=== PATIENT | female | born 1955 | race Caucasian/White ===

== ENCOUNTER → 2016-07-20 | Outpatient (CLI) | payer BC ==
[~2016-07-20] MED LIST: AMR2 PO; ATOR-24 PO; BUPR-79 PO; CLIN300C10 PO; DEXL30CA5 PO; FLUT0.15 NAE; LCTX PO; LISI10TA PO; MULTTAB58 PO; NPR250 PO; NSNN50 NAE
[2016-07-20 14:23] LABS: ESTIMATED AVERAGE GLUCOSE 140 mg/dl; HA1C FLAG Normal (Normal)
[2016-07-20 15:20] LABS: ALT/SGPT 32 U/L (12-78); BLOOD UREA NITROGEN 23 mg/dl (7-18); BUN/CREATININE RATIO 23.8 (10-20); CALCIUM 9.3 mg/dl (8.5-10.1); CARBON DIOXIDE 29 mmol/L (21-32); CHLORIDE 105 mmol/L (98-107); CREATININE 0.97 mg/dl (0.60-1.20); GLUCOSE 126 mg/dl (70-99); POTASSIUM 4.3 mmol/L (3.5-5.1); SODIUM 143 mmol/L (136-145)
[2016-07-20 15:23] LABS: CHOLESTEROL 152 mg/dl (0-200); HDL CHOLESTEROL 50 mg/dl; LDL CHOLESTEROL CALCULATED 83 mg/dl; TRIGLYCERIDES 93 mg/dl (0-150); VERY LOW DENSITY LIPOPROT CALC 19 mg/dl
== END | disposition home or self-care (01) ==
LOC: C.LABBC 10:31
PROVIDERS: ATTEND Family Medicine
DX: E78.5 Hyperlipidemia, unspecified (principal); I10 Essential (primary) hypertension; R73.03 Prediabetes

== ENCOUNTER → 2016-08-10 | Outpatient (CLI) | payer BC ==
--- NOTE | 2016-08-10 16:08 | MAMMOGRAPHY REPORT ---
BILATERAL DIGITAL SCREENING MAMMOGRAM WITH CAD: 08/10/2016 CLINICAL HISTORY: Routine screening. Patient has no complaints. TECHNIQUE: Bilateral CC and MLO views were obtained. Current study was also evaluated with a Comput er Aided Detection (CAD) system. COMPARISON: Comparison is made to exams dated: 08/08/2015 mammogram, 07/24/2013 mammogram, 07/25/2014 mammogram, 07/21/2012 mammogram, 07/15/2011 mammogram, and 07/14/2010 mammogram - [facility]. BREAST COMPOSITION: The tissue of both breasts is almost entirely fatty. FINDINGS: There are diffuse bilateral benign-appearing round and rim calcifications. No suspicious mass, architectural distortion or cluster of suspicious microcalcifications is seen. IMPRESSION: ACR BI-RADS CATEGORY 1: NEGATIVE There is no mammographic evidence of malignancy. A 1 year screening mammogram is recommended. The p atient will receive written notification of the results. Approximately 10% of breast cancers are not detected with mammography. A negative mammographic repor t should not delay biopsy if a clinically suggestive mass is present. Funmi Sidhu M.D. ay/:08/10/2016 16:00:29 Fish Bait Picker: Yonatan Solano RT(R)(M), [facility] letter sent: Normal 1/2 BI-RADS Code: ACR BI-RADS Category 1: Negative
== END | disposition home or self-care (01) ==
LOC: C.MAMM 13:18
PROVIDERS: ATTEND Family Medicine
DX: Z12.31 Encounter for screening mammogram for malignant neoplasm of breast (principal)

== ENCOUNTER 2016-10-02 16:21 | Observation (INO) | payer BC, OTHER ==
[~2016-10-02] VITALS: Ht 160 cm; Wt 74.1 kg
[~2016-10-02 16:21] MED LIST changes: -ATOR-24 PO; -BUPR-79 PO; -DEXL30CA5 PO; -FLUT0.15 NAE; -LISI10TA PO; -NPR250 PO
[2016-10-02] MEDS ORDERED: DEXL30CA5 PO (17:02)
[2016-10-02] MEDS ORDERED: BUPR-79 PO (17:02)
[2016-10-02] MEDS ORDERED: FLUT0.15 NAE (17:02)
[2016-10-02] MEDS ORDERED: LISI10TA PO (17:02)
[2016-10-02] MEDS ORDERED: ATOR-24 PO (17:02)
[2016-10-02] MEDS ORDERED: SODIUM CHLORIDE 0.9% 1000ML 1,000 ML IV STA (17:18)
[2016-10-02] MEDS ORDERED: SODIUM CHLORIDE 0.9% 1000ML 1,000 ML IV ONE (17:18)
--- NOTE | 2016-10-02 17:25 | EMERGENCY ROOM VISIT NOTE ---
History Report prepared by Kaylan: Daniel Brown Under the Supervision of: Dr. Jordan Sumner M.D. First contact with patient: 17:09 Chief Complaint: SYNCOPE Stated Complaint: SYNCOPE/WEAKNESS Nursing Triage Summary: Patient arrived via ALS. 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 Patient had syncopal episode. Staff able to assist patient to floor. Per EMS, no head trauma. Patient denies pain at this time. Hx of diabetes. BSG 88 per EMS. 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 Associated symptoms include diaphoresis, fatigue, and generalized weakness. The patient was picking up her cat at the [facility] today when she began to feel dizzy. Per [facility] business development recruiter, the patient stated that she felt "woozy" then leaned against the desk. Staff was able to lower the patient to the floor. She did not hit her head during the fall. The patient's reports that patient being responsive, but lethargic, about 15 minutes after the syncopal episode occurred. Patient states she "does not know what happened." Patient has a history of diabetes. Her blood sugar was recorded as 88, by EMS, on scene. Patient denies headaches, chest pain, shortness of breath, nausea, vomiting, abdominal pain, or any additional associated symptoms. She denies history of syncopal episodes. Patient's adds that the patient twisted her left knee during the fall. Patient notes that she walked 3 miles, without symptoms, this morning. 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 A total of 10 systems reviewed and were otherwise negative. Past Medical & Surgical Medical Problems: (1) Diabetes Old medical records were reviewed. Nurse's notes were reviewed and I agree with. Diabetes. Denies cardiac disease. Family History No significant family history Social History Smoking Status: Never Smoker Smokeless Tobacco Use: No Alcohol Use: none Drug Use: none Marital Status: Housing Status: lives with significant other Current/Historical Medications Scheduled Atorvastatin (Lipitor), 40 MG PO DAILY Bupropion (Wellbutrin Sr), 150 MG PO BID Dexlansoprazole (Dexilant), 30 MG PO QAM Lisinopril (Prinivil), 10 MG PO DAILY Scheduled PRN Fluticasone Propionate (Nasal) (Flonase Allergy Relief), 2 SPRAYS TRIXIE DAILY PRN for Nasal Congestion Allergies Coded Allergies: Shellfish (Verified Allergy, Unknown, `, 08/08/12) Penicillins (Verified Adverse Reaction, Mild, GI DISTRESS, 08/08/12) Physical Exam Vital Signs Date Time Temp Pulse Resp B/P Pulse Ox O2 Delivery O2 Flow Rate FiO2 10/02/16 18:25 66 18 159/88 99 Room Air 10/02/16 17:00 97 Room Air 10/02/16 16:59 61 10/02/16 16:33 36.6 60 18 140/94 97 Room Air Physical Exam General: Mildly ill appearing middle aged female complaining of generalized weakness and feeling tired. Alert and oriented x3. HEENT: Normal cephalic atraumatic. Pupils are equal round and reactive to light. Extraocular movements are intact. Oropharynx is pink with moist mucous membranes. No swelling of the mouth lips or tongue. Neck: Supple with a midline trachea. No meningeal signs or stiffness, no JVD or bruits. No Stridor. Chest: Clear to auscultation bilaterally. No wheezes or rhonchi. No increased work of breathing. Heart: regular rate and rhythm. Abdomen: Soft nontender, nondistended without rebound guarding or rigidity. Extremities: Left knee tenderness. No cyanosis clubbing or edema. No calf tenderness or assymetry Spine/Back. Non tender to palpation. No CVA tenderness Skin: Good turgor without rashes. Neurologic exam: Cranial nerves two through 12 are intact. Motor and sensation are intact and symmetrical throughout. Medical Decision & Procedures ER Provider Diagnostic Interpretation: Prehospital EKG: Normal sinus rhythm, rate of 60, no acute ischemic changes or ectopy noted. Compared to October- rate has decreased. X-ray results as stated below per interpretation by me and the radiologist: CHEST ONE VIEW PORTABLE CLINICAL HISTORY: Atypical chest pain. Trauma. COMPARISON STUDY: No previous studies for comparison. FINDINGS: The cardiac and mediastinal contours are normal. There is no evidence of focal pulmonary consolidation. There is no evidence of failure. No pleural effusions are visualized.[ There is a 14 mm left basilar nodule versus summation. A PA and lateral study is recommended in follow-up. IMPRESSION: 1. No evidence of failure. No evidence of focal pulmonary consolidation 2. No evidence of pneumothorax 3. 14 mm left basilar nodule versus summation. Electronically signed by: Russell Alcaraz M.D. 10/02/2016 6:01 PM Dictated Date/Time: 10/02/2016 6:00 PM LEFT KNEE 1 OR 2 VIEWS ROUTINE CLINICAL HISTORY: Left knee pain status post trauma COMPARISON: None. DISCUSSION: There is a suprapatellar joint effusion. There is slight sclerosis of the medial tibial plateau. While this may be a chronic finding, one cannot exclude a subtle medial tibial plateau fracture. There is no evidence for soft tissue swelling. IMPRESSION: 1. Small joint effusion 2. Subtle sclerosis involving the medial tibial plateau. While this may be a chronic finding, one cannot exclude a subtle medial tibial plateau fracture. Please correlate with the patient's site of pain, and mechanism of injury. Electronically signed by: Russell Alcaraz M.D. 10/02/2016 6:04 PM Dictated Date/Time: 10/02/2016 6:02 PM Laboratory Results 10/02/16 16:25 Red Blood Count 4.87, Mean Corpuscular Volume 90.8, Mean Corpuscular Hemoglobin 29.4, Mean Corpuscular Hemoglobin Concent 32.4, Mean Platelet Volume 11.0, Neutrophils (%) (Auto) 55.4, Lymphocytes (%) (Auto) 35.3, Monocytes (%) (Auto) 6.7, Eosinophils (%) (Auto) 1.8, Basophils (%) (Auto) 0.7, Neutrophils # (Auto) 3.71, Lymphocytes # (Auto) 2.37, Monocytes # (Auto) 0.45, Eosinophils # (Auto) 0.12, Basophils # (Auto) 0.05 10/02/16 16:25 Test 10/02/16 16:25 10/02/16 17:35 10/02/16 18:55 White Blood Count 6.71 K/uL (4.8-10.8) Red Blood Count 4.87 M/uL (4.2-5.4) Hemoglobin 14.3 g/dL (12.0-16.0) Hematocrit 44.2 % (37-47) Mean Corpuscular Volume 90.8 fL (80-100) Mean Corpuscular Hemoglobin 29.4 pg (25-34) Mean Corpuscular Hemoglobin Concent 32.4 g/dl (32-36) Platelet Count 256 K/uL (130-400) Mean Platelet Volume 11.0 fL (7.4-10.4) Neutrophils (%) (Auto) 55.4 % Lymphocytes (%) (Auto) 35.3 % Monocytes (%) (Auto) 6.7 % Eosinophils (%) (Auto) 1.8 % Basophils (%) (Auto) 0.7 % Neutrophils # (Auto) 3.71 K/uL (1.4-6.5) Lymphocytes # (Auto) 2.37 K/uL (1.2-3.4) Monocytes # (Auto) 0.45 K/uL (0.11-0.59) Eosinophils # (Auto) 0.12 K/uL (0-0.5) Basophils # (Auto) 0.05 K/uL (0-0.2) RDW Standard Deviation 42.4 fL (36.4-46.3) RDW Coefficient of Variation 12.8 % (11.5-14.5) Immature Granulocyte % (Auto) 0.1 % Immature Granulocyte # (Auto) 0.01 K/uL (0.00-0.02) Anion Gap 7.0 mmol/L (3-11) Est Creatinine Clear Calc Drug Dose 61.2 ml/min Estimated GFR () 75.4 Estimated GFR (Non- 65.0 BUN/Creatinine Ratio 22.7 (10-20) Calcium Level 9.3 mg/dl (8.5-10.1) Total Bilirubin 0.5 mg/dl (0.2-1) Direct Bilirubin mg/dl (0-0.2) Aspartate Amino Transf (AST/SGOT) 27 U/L (15-37) Alanine Aminotransferase (ALT/SGPT) 29 U/L (12-78) Alkaline Phosphatase 69 U/L (45-117) Total Creatine Kinase 209 U/L (26-192) Creatine Kinase MB 4.3 ng/ml (0.5-3.6) Creatine Kinase MB Ratio 2.1 (0-3.0) Total Protein 6.9 gm/dl (6.4-8.2) Albumin 3.7 gm/dl (3.4-5.0) Lipase 134 U/L (73-393) Thyroid Stimulating Hormone (TSH) 3.960 uIu/ml (0.300-4.500) Chemistry Specimen Hemolysis Hepatitis C Antibody Screen NEG (NEG) Bedside Troponin I 0.010 ng/ml (0-0.045) Urine Color YELLOW Urine Appearance CLEAR (CLEAR) Urine pH 7.0 (4.5-7.5) Urine Specific [place] 1.014 (1.000-1.030) Urine Protein NEG (NEG) Urine Glucose (UA) NEG (NEG) Urine Ketones NEG (NEG) Urine Occult Blood NEG (NEG) Urine Nitrite NEG (NEG) Urine Bilirubin NEG (NEG) Urine Urobilinogen NEG (NEG) Urine Leukocyte Esterase NEG (NEG) Laboratory studies as stated above per my review. Medications Administered Medications (Trade) Dose Ordered Sig/Jonah Route Start Time Stop Time Status Last Admin Dose Admin Sodium Chloride 1,000 ml @ 999 mls/hr Q1H1M STAT IV 10/02/16 17:18 10/02/16 18:18 DC 10/02/16 18:25 999 MLS/HR Sodium Chloride (1/2 Nss 1000ml) 1,000 ml @ 125 mls/hr Q8H IV 10/02/16 19:28 10/03/16 11:27 10/02/16 22:17 125 MLS/HR Acetaminophen (Tylenol Tab) 650 mg Q4H PRN PO 10/02/16 19:30 11/01/16 19:29 10/02/16 22:20 650 MG ECG Indication: weakness Rate (beats per minute): 60 Rhythm: sinus bradycardia Findings: no acute ischemic change, no ectopy Comparison ECG Date: Prehospital ECG Change: no significant change ED Course 0: Past medical records reviewed. The patient was evaluated in room B8, and a complete history and physical examination were performed. 171: Ordered Sodium Chloride 1,000 ml @ 200 mls/hr IV, Sodium Chloride 1,000 ml @ 999 mls/hr IV. 180: Upon reevaluation, the patient is resting comfortably. I discussed the results and treatment plan with the patient. She verbalized agreement of the treatment plan. 184: I reevaluated the patient, she is still feeling tired at this time. I will evaluate the patient further. 1853: I discussed the patient's case with Dr. Lai ([facility]). He will evaluate the patient for further management and care. Medical Decision Differentials include, but are not limited to; syncope, arrhythmia, dehydration , infection, electrolyte or metabolic abnormality, cardiac disease, CVA. This patient comes in as described above. She was placed in room B8. She is here for treatment and evaluation of having a syncopal episode. She is feeling fine and started feeling dizzy and weak diffusely. She felt fine earlier in the day had no recent illness or fevers. No history of GI bleed. EKG was obtained and shows no acute ischemic changes or significant arrhythmia. She was hydrated with IV normal saline .she was put on a patient monitor. EKG, and multiple other blood testing was obtained. She was reassessed frequently. She seems tired but otherwise is asymptomatic. She has no fever or white count to suggest infection. Her EKG and cardiac workup is unremarkable thus far. She has a normal neurologic exam. She's not significantly anemic. She has no significant electrode or metabolic abnormalities. X-ray of her knee does question a possible tibial plateau fracture versus chronic change since she is tender may be acute. I do think she needs to be admitted for observation due to the syncopal episode hydration and further treatment and evaluation. I have consulted Dr. Lai who saw the patient in the ER and will admit her for these measures. Consults Time Called: 1849 Consulting Physician: Dr. Lai ([facility]) Returned Call: 1853 I discussed the patient's case with Dr. Lai ([facility]). He will evaluate the patient for further management and care. Impression Primary Impression: Syncope Additional Impression: Tibial plateau fracture Scribe Attestation The scribe's documentation has been prepared under my direction and personally reviewed by me in its entirety. I confirm that the note above accurately reflects all work, treatment, procedures, and medical decision making performed by me. Departure Information Dispostion Being Evaluated By Hospitalist Referrals Isabel Kate MD (PCP) Patient Instructions My [facility] Problem Qualifiers
[2016-10-02 17:31] LABS: BASO % 0.7 %; BASO ABS # 0.05 K/uL (0-0.2); COMPLETE YES; EOS % 1.8 %; HEMATOCRIT 44.2 % (37-47); IG% 0.1 %; LYMPH % 35.3 %; LYMPH ABS # 2.37 K/uL (1.2-3.4); MEAN CELL VOLUME 90.8 fL (80-100); MEAN CORPUSCULAR HEMOGLOBIN 29.4 pg (25-34); MEAN CORPUSCULAR HGB CONC 32.4 g/dl (32-36); MONO % 6.7 %; NEUT % 55.4 %; PLATELET COUNT 256 K/uL (130-400); RED BLOOD COUNT 4.87 M/uL (4.2-5.4); WHITE BLOOD COUNT 6.71 K/uL (4.8-10.8)
--- NOTE | 2016-10-02 18:03 | DIAGNOSTIC IMAGING REPORT ---
CHEST ONE VIEW PORTABLE CLINICAL HISTORY: Atypical chest pain. Trauma. COMPARISON STUDY: No previous studies for comparison. FINDINGS: The cardiac and mediastinal contours are normal. There is no evidence of focal pulmonary consolidation. There is no evidence of failure. No pleural effusions are visualized.[ There is a 14 mm left basilar nodule versus summation. A PA and lateral study is recommended in follow-up. IMPRESSION: 1. No evidence of failure. No evidence of focal pulmonary consolidation 2. No evidence of pneumothorax 3. 14 mm left basilar nodule versus summation. Electronically signed by: Russell Alcaraz M.D. 10/02/2016 6:01 PM Dictated Date/Time: 10/02/2016 6:00 PM
--- NOTE | 2016-10-02 18:05 | DIAGNOSTIC IMAGING REPORT ---
LEFT KNEE 1 OR 2 VIEWS ROUTINE CLINICAL HISTORY: Left knee pain status post trauma COMPARISON: None. DISCUSSION: There is a suprapatellar joint effusion. There is slight sclerosis of the medial tibial plateau. While this may be a chronic finding, one cannot exclude a subtle medial tibial plateau fracture. There is no evidence for soft tissue swelling. IMPRESSION: 1. Small joint effusion 2. Subtle sclerosis involving the medial tibial plateau. While this may be a chronic finding, one cannot exclude a subtle medial tibial plateau fracture. Please correlate with the patient's site of pain, and mechanism of injury. Electronically signed by: Russell Alcaraz M.D. 10/02/2016 6:04 PM Dictated Date/Time: 10/02/2016 6:02 PM
[2016-10-02 18:41] LABS: ALKALINE PHOSPHATASE 69 U/L (45-117); ALT/SGPT 29 U/L (12-78); AST/SGOT 27 U/L (15-37); BLOOD UREA NITROGEN 21 mg/dl (7-18); BUN/CREATININE RATIO 22.7 (10-20); CALCIUM 9.3 mg/dl (8.5-10.1); CARBON DIOXIDE 28 mmol/L (21-32); CHLORIDE 107 mmol/L (98-107); CKMB/CK RATIO 2.1 (0-3.0); CREATININE 0.94 mg/dl (0.60-1.20); GLUCOSE 113 mg/dl (70-99); POTASSIUM 4.4 mmol/L (3.5-5.1); SODIUM 142 mmol/L (136-145)
[2016-10-02 19:15] LABS: URINE APPEARANCE CLEAR (CLEAR); URINE BILIRUBIN NEG (NEG); URINE COLOR YELLOW; URINE NITRITE NEG (NEG); URINE SPECIFIC GRAVITY 1.014 (1.000-1.030); UROBILINOGEN NEG (NEG)
[2016-10-02 19:16] LABS: MANUAL MICROSCOPIC REQUIRED? NO; REVIEW REQ? NO
[2016-10-02] MEDS ORDERED: POLYETHYLENE (MIRALAX) 17 GM PACK PO PRN (19:30)
[2016-10-02] MEDS ORDERED: ALUMINUM/MAGNESIUM/SIMETH (MAALOX MAX) 30 ML UDC PO PRN (19:30)
[2016-10-02] MEDS ORDERED: ACETAMINOPHEN 325 MG TAB PO PRN (19:30)
[2016-10-02] MEDS ORDERED: MAGNESIUM HYDROXIDE SUSP 30 ML UDC PO PRN (19:30)
[2016-10-02] MEDS ORDERED: ONDANSETRON INJ 2 MG/ML 2 ML VIAL IV PRN (19:30)
[2016-10-02] MEDS ORDERED: FLUTICASONE PROPIONATE NA SPR 16 GM BTL NAE PRN (19:30)
[2016-10-02] MEDS ORDERED: IV FLUIDS COMPLETED PRN (20:00)
--- NOTE | 2016-10-02 20:34 | History and Physical ---
History & Physical Date & Time of Service: October 02, 2016 at 20:33 Chief Complaint: Syncope/Weakness Primary Care Physician: Isabel Kate MD Past Medical/Surgical History Medical Problems: (1) Diabetes Status: Chronic Family History No significant family history Social History Smoking Status: Never Smoker Smokeless Tobacco Use: No Drug Use: none Marital Status: Immunizations History of Influenza Vaccine: N/A History of Tetanus Vaccine?: Yes Tetanus Immunization Date: Nov 15, 1999 History of Pneumococcal: Yes History of Hepatitis B Vaccine: Unknown Multi-Drug Resistant Organisms History of MDRO: No Allergies Coded Allergies: Shellfish (Verified Allergy, Unknown, `, 08/08/12) Penicillins (Verified Adverse Reaction, Mild, GI DISTRESS, 08/08/12) Home Medications Scheduled Atorvastatin (Lipitor), 40 MG PO DAILY Bupropion (Wellbutrin Sr), 150 MG PO BID Dexlansoprazole (Dexilant), 30 MG PO QAM Lisinopril (Prinivil), 10 MG PO DAILY Scheduled PRN Fluticasone Propionate (Nasal) (Flonase Allergy Relief), 2 SPRAYS TRIXIE DAILY PRN for Nasal Congestion Physical Exam Vital Signs Date Time Temp Pulse Resp B/P Pulse Ox O2 Delivery O2 Flow Rate FiO2 10/02/16 18:25 66 18 159/88 99 Room Air 10/02/16 17:00 97 Room Air 10/02/16 16:59 61 10/02/16 16:33 36.6 60 18 140/94 97 Room Air Diagnostics Laboratory Results Results Past 24 Hours Test 10/02/16 16:25 10/02/16 17:35 10/02/16 18:55 Range/Units White Blood Count 6.71 4.8-10.8 K/uL Red Blood Count 4.87 4.2-5.4 M/uL Hemoglobin 14.3 12.0-16.0 g/dL Hematocrit 44.2 37-47 % Mean Corpuscular Volume 90.8 80-100 fL Mean Corpuscular Hemoglobin 29.4 25-34 pg Mean Corpuscular Hemoglobin Concent 32.4 32-36 g/dl Platelet Count 256 130-400 K/uL Mean Platelet Volume 11.0 7.4-10.4 fL Neutrophils (%) (Auto) 55.4 % Lymphocytes (%) (Auto) 35.3 % Monocytes (%) (Auto) 6.7 % Eosinophils (%) (Auto) 1.8 % Basophils (%) (Auto) 0.7 % Neutrophils # (Auto) 3.71 1.4-6.5 K/uL Lymphocytes # (Auto) 2.37 1.2-3.4 K/uL Monocytes # (Auto) 0.45 0.11-0.59 K/uL Eosinophils # (Auto) 0.12 0-0.5 K/uL Basophils # (Auto) 0.05 0-0.2 K/uL RDW Standard Deviation 42.4 36.4-46.3 fL RDW Coefficient of Variation 12.8 11.5-14.5 % Immature Granulocyte % (Auto) 0.1 % Immature Granulocyte # (Auto) 0.01 0.00-0.02 K/uL Sodium Level 142 136-145 mmol/L Potassium Level 4.4 3.5-5.1 mmol/L Chloride Level 107 98-107 mmol/L Carbon Dioxide Level 28 21-32 mmol/L Anion Gap 7.0 3-11 mmol/L Blood Urea Nitrogen 21 7-18 mg/dl Creatinine 0.94 0.60-1.20 mg/dl Est Creatinine Clear Calc Drug Dose 61.2 ml/min Estimated GFR () 75.4 Estimated GFR (Non- 65.0 BUN/Creatinine Ratio 22.7 10-20 Random Glucose 113 70-99 mg/dl Calcium Level 9.3 8.5-10.1 mg/dl Total Bilirubin 0.5 0.2-1 mg/dl Direct Bilirubin 0-0.2 mg/dl Aspartate Amino Transf (AST/SGOT) 27 15-37 U/L Alanine Aminotransferase (ALT/SGPT) 29 12-78 U/L Alkaline Phosphatase 69 45-117 U/L Total Creatine Kinase 209 26-192 U/L Creatine Kinase MB 4.3 0.5-3.6 ng/ml Creatine Kinase MB Ratio 2.1 0-3.0 Total Protein 6.9 6.4-8.2 gm/dl Albumin 3.7 3.4-5.0 gm/dl Lipase 134 73-393 U/L Thyroid Stimulating Hormone (TSH) 3.960 0.300-4.500 uIu/ml Chemistry Specimen Hemolysis Bedside Troponin I 0.010 0-0.045 ng/ml Urine Color YELLOW Urine Appearance CLEAR CLEAR Urine pH 7.0 4.5-7.5 Urine Specific [place] 1.014 1.000-1.030 Urine Protein NEG NEG Urine Glucose (UA) NEG NEG Urine Ketones NEG NEG Urine Occult Blood NEG NEG Urine Nitrite NEG NEG Urine Bilirubin NEG NEG Urine Urobilinogen NEG NEG Urine Leukocyte Esterase NEG NEG Microbiology Results 10/02/16 Urine Culture, Received Pending Impression Assessment and Plan obs #[id number] VTE Prophylaxis VTE Risk Assessment Done? Y/N: Yes Risk Level: Moderate
[2016-10-02 20:59] VITALS: BP 141/90; PULSE 91; TEMP 37.2; O2SAT 97; Ht 160 cm; Wt 74.1 kg
--- NOTE | 2016-10-02 22:10 | HISTORY & PHYSICAL EXAMINATION ---
DATE OF ADMISSION: 10/02/2016 CHIEF COMPLAINT: Syncope. SECONDARY COMPLAINT: Knee pain. HISTORY OF PRESENT ILLNESS: The patient is a very pleasant 61-year-old female, who notes that she has actually been doing really well. Before we really dive into her history of present illness; she notes actually, recently she has probably been as healthy as she has been in a while. She had some fruit this morning, then went for about a 3.25 mile walk around noon, did not have time to really get any lunch, got a latte and a small piece of cheese. Then, she took her cat to the vet around 3:00. When she was picking up her cat, she started to feel lightheaded and faint, like she was going to go out. Before she could really do anything about it, she was starting to lose consciousness. Staff at the veterinary office were able to lower her to the floor. Unfortunately, on her way down, she believes she twisted her left knee and then she was lying down. She notes while she was down she does not believe she completely lost consciousness, but knows that she was out enough that she could not really open her eyes. She could hear, but not really see and then she was brought to the ER in an ambulance. Now she is awake, alert and generally feels okay. She is very fatigued. No chest pain or shortness of breath. She had no chest pain or shortness of breath preceding the episode, during the episode or after the episode. She felt good during her walk. As far as her secondary complaint, she does not really quite remember what happened with her knee as she was going down, given that she was losing consciousness, but she believes she twisted it and now it hurts a lot, it hurts to move. She had tried to get up with assistance to go to the bathroom and any weight bearing is extremely tender. REVIEW OF SYSTEMS: Otherwise negative, except for as above. PAST MEDICAL HISTORY: Includes; GERD, chronic sinusitis, hyperlipidemia, hypertension, lumbar spondylosis and impaired glucose tolerance. MEDICATIONS: Lipitor 40 mg daily, bupropion SR 150 mg b.i.d., Dexilant 30 mg daily, Cymbalta 60 mg daily, Flonase 2 sprays each nostril daily as needed and lisinopril one tab daily. PAST SURGICAL HISTORY: Cholecystectomy and TAHBSO. FAMILY HISTORY: Colon cancer in her grandmother; diabetes in her grandmother and mother; breast cancer in her mother. SOCIAL HISTORY: She is employed. She is . Never a smoker. She exercises 5-6 times a week now, including a 3.25 mile walk today. ALLERGIES: LISTED PENICILLIN AND SHELLFISH. PHYSICAL EXAMINATION: VITAL SIGNS: Temp 36.6, pulse 60, respiratory rate 18, blood pressure 140/94 and 97% on room air. GENERAL: She is awake, alert, oriented x3, pleasant and fatigued-appearing, but otherwise in no acute distress. HEENT: Normocephalic and atraumatic. Mucous membranes are moist. CARDIOVASCULAR: Regular without rubs, murmurs or gallops. LUNGS: Clear to auscultation bilaterally. No rales, rhonchi or wheezes, with good effort. ABDOMEN: Soft, nondistended and nontender. No masses or organomegaly. EXTREMITIES: Without cyanosis, clubbing or edema. No calf tenderness. She does not have a knee effusion that I can truly feel, but she does have rather significant tenderness at her distal lateral femur, not really any on the tibia, but reproducibly tender on the distal lateral femur with palpation or vibration. No bruising, maybe a trace of edema. NEUROLOGIC: Shows cranial nerves II-XII to be grossly intact. Gross motor and sensory are intact. She shows absolutely no focal neurologic deficits. SKIN: Shows no rashes, no pallor or icterus. MENTAL STATE: Shows good recent and remote recall. Normal mood and affect. Good judgment and insight. LABORATORIES AND DIAGNOSTICS: Knee x-ray shows a questionable fracture of the medial tibial plateau; nothing in the area that is tender. Chest x-ray shows a 14 mm left basilar nodule versus summation, recommending a PA and lateral and followup. CBC shows a white count of 6.71, hemoglobin 14.3, platelets 256. CMP with sodium 142, potassium 4.4, chloride 107, CO2 28, BUN 21, creatinine 0.94, calcium 9.3, glucose 113, total bili 0.5 with an AST of 27, ALT 29, alkaline phosphatase 69. CK total of 209, MB of 4.3, troponin of 0. Total protein 6.9, albumin 3.7 and lipase 134. TSH 3.96. Urinalysis specific gravity is 1.014, pH of 7, yellow and clear. EKG was sinus bradycardia. No notable blocks, no ST changes and the QTc was 433. ASSESSMENT AND PLAN: 1. Syncope. Given her clear prodrome feeling it happened, knowing what was going on when she was starting to go out, it certainly fits with a vasovagal type of response; the exact "why now" seems a bit nonspecific, but certainly her relative lack of p.o. intake and still exercising fairly robustly earlier today are likely part of the factors leading to it. Because of her age, hypertension and hyperlipidemia we will keep her in-house to monitor rhythm, follow cardiac enzymes and get an echocardiogram; when those are all negative, she will be safe for discharge to home. 2. Mild dehydration, mostly from poor p.o. intake today with good exercise. We will give her 2 liters of IV fluids and then follow up her status. 3. Knee pain. It is very difficult to get a good knee exam on her because of guarding against pain, so I am unable to check menisci, ligamentous laxity or even really knee range of motion. She is exquisitely tender in the lateral femur without a whole lot superficial to show for it. I discussed with her given the difficulty of getting a good exam, I am unclear as to if it would be better to proceed with a CAT scan to look for a fracture missed on x-ray or get an MRI to look for ligamentous or meniscal damage; after we discussed it, we felt it most prudent to consult orthopedics to evaluate the knee and then guide from there. For now, the ER is placing a splint. 4. Hypertension, continue her lisinopril. 5. Hyperlipidemia, continue her atorvastatin. 6. Impaired glucose tolerance. Her last A1c was 6.5 about 2.5 months ago and it sounds like she is really working on lifestyle changes in a positive way; so I expect this to improve. 7. Deep venous thrombosis prophylaxis, Lovenox. AP
[2016-10-02] MEDS: BuPROPion SR 150 MG TABCR PO SCH (22:16)
[2016-10-02] MEDS: ATORVASTATIN 40 MG TAB PO SCH (22:16)
[2016-10-02] MEDS: SODIUM CHLORIDE 0.45% 1000ML 1,000 ML IV SCH (22:17)
[2016-10-03] VITALS (9 sets, daily range): BP systolic 121–154; BP diastolic 79–85; PULSE 63–84; TEMP 36.6–37.2; O2SAT 93–98
[2016-10-03] MEDS ORDERED: NURSING VERBAL MED ORDER ONE (01:00)
[2016-10-03] MEDS ORDERED: MoRPHine SULFATE 2 MG/ML CARP IV PRN (01:15)
[2016-10-03] MEDS ORDERED: TRAMADOL HCL 50 MG TAB PO PRN (01:15)
[2016-10-03] MEDS: SODIUM CHLORIDE 0.45% 1000ML 1,000 ML IV SCH (03:58)
[2016-10-03 08:02] LABS: PROTHROMBIN TIME (PATIENT) 10.7 SECONDS (9.0-12.0)
[2016-10-03] MEDS: PANTOprazole SOD 40 MG TAB PO SCH (08:09)
[2016-10-03] MEDS: BuPROPion SR 150 MG TABCR PO SCH ×2 (08:10→20:11)
[2016-10-03] MEDS: LISINOPRIL 10 MG TAB PO SCH (08:11)
--- NOTE | 2016-10-03 09:06 | ORTHOPEDIC CONSULTATION ---
DATE OF CONSULTATION: 10/03/2016 DATE OF CONSULTATION: 10/03/2016. CHIEF COMPLAINT: Left knee pain after a fall and syncopal episode. 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 The exact details of the fall are a little bit hard to know as this was a syncopal episode. She does report that she had no preexisting knee problems and actually walked 3 miles or so earlier in the day. She enjoys walking and does this regularly. No history of knee problems in the past. Ever since this fall, she has had pain and discomfort in her knee. He was seen in the Emergency Room and admitted for evaluation of this syncopal episode. X-rays revealed a possible fracture. She describes global pain. A little bit more lateral than medial. No groin pain. No other injuries. PAST MEDICAL HISTORY: Significant for: 1. Gastroesophageal reflux disease. 2. Elevated cholesterol. 3. Chronic sinusitis. 4. Hypertension. 5. Lumbar spondylosis. The remainder of the past medical history is per the admission H\T\P. PHYSICAL EXAMINATION: GENERAL: Reveals a pleasant, middle-aged female. She is lying in bed and looks quite comfortable. Looks healthy. EXTREMITIES: Examination of the left leg reveals it to be well aligned. There is no visible deformity. She does have a small knee effusion. She can do a straight leg raise but requires quite a bit of effort. There is no varus or valgus instability. She has got tenderness both medially and laterally. Her extensor mechanism is intact. She has got no AP instability. No varus valgus instability. Range of motion of her knee is 0-90 degrees limited by pain. X-RAYS: X-rays of the left knee were reviewed. It shows a small joint effusion. It does look like there is a small crack in the medial tibial plateau. Joint space is otherwise well maintained. This is a nonweightbearing film. ASSESSMENT: A 61-year-old female avid walker, status post a syncopal episode and fall with a question of a medial tibial plateau fracture. It is a little difficult to assess on exam as she is sore all over. X-rays are not certain and I think we need to better image this in order to give her a definitive diagnosis so we can determine her weightbearing status. PLAN: Will keep her nonweightbearing for now. She should continue her medical workup. We are going to get a CT scan with 3 reconstruction which should be able to tell us whether there is a fracture or not. There is no major soft tissue problem. Ligaments were all stable. PT and weightbearing recommendations will all be based on this CT scan results of that. Any other questions can be directed to me at [phone]. If the CT scan is negative, we can start therapy and weightbear as tolerated. If not, we will likely need to put her in a knee immobilizer and keep her nonweightbearing for the next month.
[2016-10-03 09:32] LABS: HEMATOCRIT 38.3 % (37-47); MEAN CELL VOLUME 90.8 fL (80-100); MEAN CORPUSCULAR HEMOGLOBIN 30.3 pg (25-34); MEAN CORPUSCULAR HGB CONC 33.4 g/dl (32-36); MEAN PLATELET VOLUME 10.8 fL (7.4-10.4); PLATELET COUNT 219 K/uL (130-400); RED BLOOD COUNT 4.22 M/uL (4.2-5.4); WHITE BLOOD COUNT 5.87 K/uL (4.8-10.8)
--- NOTE | 2016-10-03 09:33 | DIAGNOSTIC IMAGING REPORT ---
CT OF THE LEFT KNEE PAIN CT DOSE: 221.88 mGy.cm HISTORY: Trauma. Pain. Knee pain after fall. Possible tibial plateau fracture. SD Rec TECHNIQUE: Multiaxial CT images of the left knee were performed and reformatted in the sagittal and coronal plane without the use of contrast. COMPARISON: None. FINDINGS: Moderate degenerative change all major joint compartments. Very small joint effusion. No evidence for a lipohemarthrosis. No evidence for compression deformity. Cortical margins appear to be intact. IMPRESSION: Degenerative change. No evidence for fracture. Small joint effusion. Electronically signed by: Jackson Patricia M.D. 10/03/2016 9:31 AM Dictated Date/Time: 10/03/2016 9:26 AM
[2016-10-03] MEDS: ENOXAPARIN 40 MG/0.4 ML SYR SC SCH (10:31)
[2016-10-03 11:17] LABS: BUN/CREATININE RATIO 18.7 (10-20); CALCIUM 8.9 mg/dl (8.5-10.1); CREATININE 0.9 mg/dl (0.60-1.20)
--- NOTE | 2016-10-03 11:52 | Hospitalist Progress Note ---
Hospitalist Progress Note Date of Service October 03, 2016. (Maria Esther Arzola ., CLAYTONC) Subjective Pt evaluation today including: conversation w/ patient, physical exam, chart review, lab review, review of studies, review of inpatient medication list Pain: 2/10 aching left knee pain at rest PO Intake: Tolerating PO diet Voiding: no voiding problems Patient complains of a 2/10 aching pain in her left knee when at rest. She states that with any movement of her knee or weightbearing, the pain becomes very sharp and severe. She also notes some numbness in her left toes which is new. She is otherwise feeling well, although she still complains of some fatigue. The patient denies fevers, chills, sweats, chest pain, palpitations, claudication, cough, wheezing, shortness of breath, nausea, vomiting, abdominal pain, dysuria, hematuria, urinary retention, paralysis, weakness. Additional Comments: See HPI for pertinent positives and negatives. All other systems reviewed and negative. (Maria Esther Arzola ., SHIVANI-C) Objective Vital Signs Date Time Temp Pulse Resp B/P Pulse Ox O2 Delivery O2 Flow Rate FiO2 10/03/16 11:04 36.6 63 20 141/85 97 Room Air 10/03/16 08:20 36.9 72 18 126/82 94 Room Air 10/03/16 08:00 Room Air 10/03/16 05:00 36.6 67 18 129/85 93 Room Air 10/03/16 04:00 Room Air 10/03/16 00:06 37.0 66 18 121/79 94 Room Air 10/03/16 00:01 94 Room Air 10/02/16 20:59 37.2 91 16 141/90 97 Room Air 10/02/16 20:30 74 18 144/82 96 10/02/16 18:25 66 18 159/88 99 Room Air 10/02/16 17:00 97 Room Air 10/02/16 16:59 61 10/02/16 16:33 36.6 60 18 140/94 97 Room Air (Maria Esther Arzola PA-C) Physical Exam Notes: General appearance: Well-developed, well-nourished, no apparent distress Head: Normocephalic, atraumatic Eyes: Normal inspection, PERRL, EOMI ENT: Normal ENT inspection, hearing grossly normal, pharynx normal Neck: Supple, no JVD, trachea midline Respiratory/Chest: Lungs clear to auscultation, normal breath sounds, no respiratory distress Cardiovascular: Regular rate & rhythm, no gallop, no murmur Abdomen/GI: Normal bowel sounds, non-tender, soft Extremities/Musculoskeletal: + Left knee very TTP on both medial and lateral aspects, worse laterally. Tenderness with any range of motion. Pulses intact. Normal inspection, no calf tenderness, no pedal edema Neurological/Psych: +No sensory deficits. Difficult to examine for motor deficits secondary to tenderness. Alert, normal mood/affect, oriented x 3 Skin: Normal color, warm/dry, no rash (Maria Esther Arzola, HYACINTH) Laboratory Results Last 24 Hours Test 10/02/16 16:25 10/02/16 17:35 10/02/16 18:55 10/02/16 21:01 White Blood Count 6.71 K/uL Red Blood Count 4.87 M/uL Hemoglobin 14.3 g/dL Hematocrit 44.2 % Mean Corpuscular Volume 90.8 fL Mean Corpuscular Hemoglobin 29.4 pg Mean Corpuscular Hemoglobin Concent 32.4 g/dl Platelet Count 256 K/uL Mean Platelet Volume 11.0 fL Neutrophils (%) (Auto) 55.4 % Lymphocytes (%) (Auto) 35.3 % Monocytes (%) (Auto) 6.7 % Eosinophils (%) (Auto) 1.8 % Basophils (%) (Auto) 0.7 % Neutrophils # (Auto) 3.71 K/uL Lymphocytes # (Auto) 2.37 K/uL Monocytes # (Auto) 0.45 K/uL Eosinophils # (Auto) 0.12 K/uL Basophils # (Auto) 0.05 K/uL RDW Standard Deviation 42.4 fL RDW Coefficient of Variation 12.8 % Immature Granulocyte % (Auto) 0.1 % Immature Granulocyte # (Auto) 0.01 K/uL Sodium Level 142 mmol/L Potassium Level 4.4 mmol/L Chloride Level 107 mmol/L Carbon Dioxide Level 28 mmol/L Anion Gap 7.0 mmol/L Blood Urea Nitrogen 21 mg/dl Creatinine 0.94 mg/dl Est Creatinine Clear Calc Drug Dose 61.2 ml/min Estimated GFR () 75.4 Estimated GFR (Non- 65.0 BUN/Creatinine Ratio 22.7 Random Glucose 113 mg/dl Calcium Level 9.3 mg/dl Total Bilirubin 0.5 mg/dl Direct Bilirubin mg/dl Aspartate Amino Transf (AST/SGOT) 27 U/L Alanine Aminotransferase (ALT/SGPT) 29 U/L Alkaline Phosphatase 69 U/L Total Creatine Kinase 209 U/L Creatine Kinase MB 4.3 ng/ml Creatine Kinase MB Ratio 2.1 Total Protein 6.9 gm/dl Albumin 3.7 gm/dl Lipase 134 U/L Thyroid Stimulating Hormone (TSH) 3.960 uIu/ml Chemistry Specimen Hemolysis Hepatitis C Antibody Screen NEG Bedside Troponin I 0.010 ng/ml Urine Color YELLOW Urine Appearance CLEAR Urine pH 7.0 Urine Specific [place] 1.014 Urine Protein NEG Urine Glucose (UA) NEG Urine Ketones NEG Urine Occult Blood NEG Urine Nitrite NEG Urine Bilirubin NEG Urine Urobilinogen NEG Urine Leukocyte Esterase NEG Bedside Glucose 126 mg/dl Test 10/03/16 01:30 10/03/16 06:56 10/03/16 07:31 10/03/16 10:17 Troponin I 0.029 ng/ml 0.031 ng/ml Bedside Glucose 89 mg/dl White Blood Count 5.87 K/uL Red Blood Count 4.22 M/uL Hemoglobin 12.8 g/dL Hematocrit 38.3 % Mean Corpuscular Volume 90.8 fL Mean Corpuscular Hemoglobin 30.3 pg Mean Corpuscular Hemoglobin Concent 33.4 g/dl RDW Standard Deviation 43.5 fL RDW Coefficient of Variation 13.1 % Platelet Count 219 K/uL Mean Platelet Volume 10.8 fL Prothrombin Time 10.7 SECONDS Prothromb Time International Ratio 1.0 Sodium Level 146 mmol/L Potassium Level 4.0 mmol/L Chloride Level 113 mmol/L Carbon Dioxide Level 28 mmol/L Anion Gap 5.0 mmol/L Blood Urea Nitrogen 17 mg/dl Creatinine 0.90 mg/dl Est Creatinine Clear Calc Drug Dose 62.5 ml/min Estimated GFR () 79.4 Estimated GFR (Non- 68.5 BUN/Creatinine Ratio 18.7 Random Glucose 102 mg/dl Calcium Level 8.9 mg/dl (Maria Esther Arzola, SHIVANI-Kaylen) Diagnostic Results Reviewed the following studies and agree with interpretation as follows: Patient Name: RICK ROSENTHAL Unit Number: [id number] Dictated: 10/03/16925 Transcribed: 10/03/16925 MS Printed Date/Time: [~ rep prt dt]/[~ rep prt tm] [~ rep ct labl] - [~ rep ct ivnm] [facility] [place] [address] Dictated: 10/03/16925 Transcribed: 10/03/16925 MS Printed Date/Time: [~ rep prt dt]/[~ rep prt tm] [~ rep ct labl] - [~ rep ct ivnm] Patient: RICK ROSENTHAL Address1: [address] [place] [address] Rec: [id number] Address2: Acct ID: [id number] [facility] Zip: [place] [address] Date: 1955 Sex: F Room/Bed: [facility] Ref Phy: Isabel Kate MD SC: C.2T Att Phy: Roger Erazo D.O. Report #: [id number] Elaine Phy: Isabel Kate MD Test: LEWO Admit Phy: Ameya Lai D.O. Linux Architect: NICOLE Interpreting Phy: Jackson Patricia M.D. Diagnosis: SYNCOPE Ordering Phy: Beau King M.D. Service Date: 10/03/16 Admit Date: 10/02/1704/05/17 MNE: [id number] CONF: DICTATED BY: Jackson Patricia M.D.]] CC: Roger Erazo D.O. Martin, James S., M.D. Zuniga, Tania S., MD Endcc: [~ rep ct add3]] CT OF THE LEFT KNEE PAIN CT DOSE: 221.88 mGy.cm HISTORY: Trauma. Pain. Knee pain after fall. Possible tibial plateau fracture. SD Rec TECHNIQUE: Multiaxial CT images of the left knee were performed and reformatted in the sagittal and coronal plane without the use of contrast. COMPARISON: None. FINDINGS: Moderate degenerative change all major joint compartments. Very small joint effusion. No evidence for a lipohemarthrosis. No evidence for compression deformity. Cortical margins appear to be intact. IMPRESSION: Degenerative change. No evidence for fracture. Small joint effusion. Electronically signed by: Jackson Patricia M.D. 10/03/2016 9:31 AM Dictated Date/Time: 10/03/2016 9:26 AM The status of this report is Signed. Draft = Not yet reviewed or approved by Radiologist. Signed = Reviewed and approved by Radiologist. <AttendingPhy>Roger Erazo D.O.</AttendingPhy> <FamilyPhy>Isabel Kate MD</FamilyPhy> <PrimaryPhy>Isabel Kate MD</PrimaryPhy> <UnitNumber> [id number]</UnitNumber> <VisitNumber>[id number]</VisitNumber> <PatientName> RICK ROSENTHAL</PatientName> <DateOfBirth>1955</DateOfBirth> < Location>C.2T</Location> <ServiceDate>10/02/16</ServiceDate> <MNE>ESINDI</MNE> < OrderingPhy>Beau King M.D.</OrderingPhy> <OrderingPhyMNE>f rep ord dr sanchez< /OrderingPhyMNE> <DictatingPhyMNE>f rep dict dr sanchez</DictatingPhyMNE> <CCListMNE >f rep ct laura</CCListMNE> <AdmittingPhyMNE>f pt admit dr sanchez</AdmittingPhyMNE> < AttendingPhyMNE>f pt attend dr sanchez</AttendingPhyMNE> <ConsultingPhyMNE>f pt consult dr sanchez</ConsultingPhyMNE> <FamilyPhyMNE>f pt fam dr sanchez</FamilyPhyMNE> <OtherPhyMNE>f pt other dr sanchez</OtherPhyMNE> < PrimaryPhyMNE>f pt prim care dr sanchez</PrimaryPhyMNE> <ReferringPhyMNE>f pt referring dr sanchez</ReferringPhyMNE> (Maria Esther Arzola, PASkipC) Assessment and Plan 61-year-old female with a history of hypertension, hyperlipidemia, GERD, and impaired glucose tolerance who presented to the ED following a syncopal episode and with left knee pain. Syncope--stable. Pt feeling well and no other syncopal episodes. Appears to be a vasovagal episode. -Admit to telemetry. No acute events overnight. Patient remained in sinus rhythm with heart rate in the 70s -Troponin negative 3. -Echocardiogram pending -Dehydration resolved. BUN within normal limits Left knee pain--ongoing -Patient currently not tolerating any weightbearing or range of motion -Orthopedics consulted, appreciate recs: CT left knee. If negative, can continue with physical therapy and weight-bear as tolerated. If positive for fracture, patient will need knee immobilizer and be kept nonweightbearing for 1 month. -CT left lower extremity shows small left knee joint effusion and degenerative changes. No fractures. -PT/OT ordered, evaluate and treat HTN--stable -Continue lisinopril 10 mg PO qd HLD -Continue atorvastatin 40 mg PO qd IGT--last HgbA1c was 6.5 on 07/20/16 -No sliding scale needed DVT prophylaxis -Enoxaparin 40 mg SC q24h Code Status -Level I, FULL RESUSCITATION STATUS This chart was completed in part utilizing [employer] Speech Voice Recognition software. Attempts were made to minimize the grammatical errors, random word insertions, pronoun errors and incomplete sentences. Any formal questions or concerns about the content, text or information contained within the body of this dictation should be directly addressed to the provider for clarification. (Maria Esther Arzola ., PA-C) I agree with PA assessment and plan and have seen and examined pt myself Pt presents with presyncope and left knee pain VSS Like vasovagal episode CT knee pending Appreciate ortho recs ECHO pending as well Will likely need PT No further recs at this time (Roger Erazo D.O.)
--- NOTE | 2016-10-03 14:50 | ECHOCARDIOGRAM REPORT ---
*NOTICE TO RECEIVING [employer] This information is strictly Confidential and protected under [place] law. [place] law prohibits you from making any further disclosure of this information unless further disclosure is expressly permitted by the written consent of the person to whom it pertains or is authorized by law. A general authorization for the release of medical or other information is not sufficient for this purpose. Hospital accepts no responsibility if the information is made available to any other person, INCLUDING THE PATIENT. Interpretation Summary * Name: RICK ROSENTHAL Study Date: 10/03/2016 01:42 PM BP: 129/65 mmHg * Patient Location: 219 HR: 70 * : 1955 (M/d/yyyy) Gender: Female Height: 63 in * Age: 61 yrs Ethnicity: [place] Weight: 170 lb * Ordering Physician: Ameya Lai * Referring Physician: Self, Referred * Performed By: Harry Aguilar RDCS * * Reason For Study: Syncope * BSA: 1.8 m2 * -- Conclusions -- * The left ventricle is normal in size. * There is normal left ventricular wall thickness. * LVEF 65% * The left ventricular wall motion is normal. * The right ventricle is normal in size and function. * The right ventricular systolic function is normal as assessed by tricuspid annular plane systolic excursion (TAPSE) (normal >1.5 cm). * There is moderate mitral annular calcification. * Normal PA pressures * Grade I diastolic dysfunction, (abnormal relaxation pattern). Procedure Details * A complete two-dimensional transthoracic echocardiogram was performed (2D, M-mode, Doppler and color flow Doppler). * The study was technically adequate. Left Ventricle * The left ventricle is normal in size. * There is normal left ventricular wall thickness. * LVEF 65% * The left ventricular wall motion is normal. Right Ventricle * The right ventricle is normal in size and function. * The right ventricular systolic function is normal as assessed by tricuspid annular plane systolic excursion (TAPSE) (normal >1.5 cm). Atria * The left atrium is mildly dilated. * Right atrial size is normal. Mitral Valve * There is moderate mitral annular calcification. * There is trace mitral regurgitation. Tricuspid Valve * The tricuspid valve is not well visualized, but is grossly normal. * There is mild tricuspid regurgitation. * Normal PA pressures Aortic Valve * The aortic valve is trileaflet. Pulmonic Valve * The pulmonic valve is not well seen, but is grossly normal. Great Vessels * Ascending aorta of normal dimension * The aortic root is normal size. Pericardium/Pleural * There is no pericardial effusion. Left Ventricular Diastolic Function * Grade I diastolic dysfunction, (abnormal relaxation pattern). MMode 2D Measurements and Calculations IVSd 0.81 cm IVSs 1.3 cm LVIDd 4.4 cm LVIDs 2.3 cm LVPWd 0.74 cm LVPWs 1.3 cm IVS/LVPW 1.1 FS 48.5 % EDV(Teich) 89.9 ml ESV(Teich) 17.9 ml EF(Teich) 80.1 % EDV(cubed) 87.9 ml ESV(cubed) 12.0 ml EF(cubed) 86.3 % % IVS thick 54.6 % % LVPW thick 76.9 % LV mass(C)d 107.2 grams LV mass(C)dI 59.4 grams/m\S\2 LV mass(C)s 85.9 grams LV mass(C)sI 47.6 grams/m\S\2 SV(Teich) 72.0 ml SI(Teich) 39.9 ml/m\S\2 SV(cubed) 75.9 ml SI(cubed) 42.1 ml/m\S\2 EPSS 0.73 cm Ao root diam 2.9 cm Ao root area 6.5 cm\S\2 ACS 1.6 cm LA dimension 3.5 cm LA/Ao 1.2 LVOT diam 1.9 cm LVOT area 2.8 cm\S\2 LVAd ap4 17.8 cm\S\2 LVLd ap4 6.7 cm EDV(MOD-sp4) 39.0 ml LVAs ap4 9.5 cm\S\2 LVLs ap4 5.3 cm ESV(MOD-sp4) 14.0 ml EF(MOD-sp4) 64.1 % LVAd ap2 18.9 cm\S\2 LVLd ap2 7.0 cm EDV(MOD-sp2) 43.0 ml LVAs ap2 9.9 cm\S\2 LVLs ap2 5.8 cm ESV(MOD-sp2) 15.0 ml EF(MOD-sp2) 65.1 % SV(MOD-sp4) 25.0 ml SI(MOD-sp4) 13.9 ml/m\S\2 SV(MOD-sp2) 28.0 ml SI(MOD-sp2) 15.5 ml/m\S\2 Doppler Measurements and Calculations MV E max mariano 107.4 cm/sec MV A max mariano 127.1 cm/sec MV E/A 0.84 MV dec time 0.23 sec Ao V2 max 159.0 cm/sec Ao max PG 10.1 mmHg Ao max PG (full) 6.5 mmHg DAVIDE(V,A) 1.7 cm\S\2 DAVIDE(V,D) 1.7 cm\S\2 LV V1 max PG 3.6 mmHg LV V1 max 95.0 cm/sec PA V2 max 120.2 cm/sec PA max PG 5.8 mmHg TR max mariano 265.6 cm/sec
[2016-10-04 05:58] LABS: HEMATOCRIT 39.7 % (37-47); MEAN CELL VOLUME 91.3 fL (80-100); MEAN CORPUSCULAR HEMOGLOBIN 30.3 pg (25-34); MEAN CORPUSCULAR HGB CONC 33.2 g/dl (32-36); MEAN PLATELET VOLUME 10.8 fL (7.4-10.4); PLATELET COUNT 200 K/uL (130-400); RED BLOOD COUNT 4.35 M/uL (4.2-5.4); WHITE BLOOD COUNT 5.73 K/uL (4.8-10.8)
[2016-10-04 06:23] LABS: BUN/CREATININE RATIO 20.4 (10-20); CALCIUM 8.7 mg/dl (8.5-10.1); CREATININE 0.9 mg/dl (0.60-1.20); POTASSIUM 4.3 mmol/L (3.5-5.1)
[2016-10-04 06:59] VITALS: BP 145/82; PULSE 66; TEMP 36.9; O2SAT 96
[2016-10-04] MEDS: ATORVASTATIN 40 MG TAB PO SCH (08:33)
[2016-10-04] MEDS: BuPROPion SR 150 MG TABCR PO SCH (08:33)
[2016-10-04] MEDS: PANTOprazole SOD 40 MG TAB PO SCH (08:34)
[2016-10-04] MEDS: LISINOPRIL 10 MG TAB PO SCH (08:35)
[2016-10-04] MEDS: ENOXAPARIN 40 MG/0.4 ML SYR SC SCH (08:35)
[2016-10-04 08:36] VITALS: BP 128/85; PULSE 70
[2016-10-04] MEDS ORDERED: NAPROXEN 250 MG TAB PO ONE (08:44)
[2016-10-04] MEDS ORDERED: NAPROXEN 250 MG TAB PO PRN (08:45)
[2016-10-04] MEDS ORDERED: NPR250 PO (08:49)
--- NOTE | 2016-10-04 08:58 | Discharge Instructions ---
Discharge Instructions Date of Service October 04, 2016. Admission Reason for Admission: Syncope Discharge Discharge Diagnosis / Problem: Syncope, left knee pain Discharge Goals Goal(s): Decrease discomfort, Improve function, Diagnostic testing, Therapeutic intervention Activity Recommendations Activity Limitations: resume your previous activity (as tolerated) . Instructions / Follow-Up Instructions / Follow-Up You were admitted to the hospital after presenting to the ER following a syncopal episode and with left knee pain. Your syncopal episode appears to be related to your slight dehydration and increased activity that day. You received a cardiac work up which included cardiac monitoring on the telemetry unit, serial cardiac enzymes, and an echocardiogram (ultrasound of the heart). All of this work up came back normal. Due to your initially severe left knee pain and grossly normal knee x-ray, orthopedics was consulted and a CT scan of the left knee was ordered. The CT was negative for fractures. The injury appears to be to one of your ligaments, and this should heal with time. Physical therapy evaluated you and has cleared you for discharge to home with assistance from your as needed. Recommendations: *You may bear weight on the left knee/leg as tolerated. Keep the left knee elevated when at rest to help reduce swelling. *Be sure to keep yourself hydrated throughout the day with plenty of fluids, especially on days when you have increased physical activity. Eat frequent, small meals throughout the day to prevent further syncopal episodes. Medications: *You may take naproxen 250 mg by mouth twice a day as needed for pain. *Continue your home medications as prescribed. Follow up: *Follow up with your primary care provider in 1 week regarding your hospital stay and to ensure that your left knee is continuing to heal. Please seek medical attention if you experience fevers, chills, sweats, chest pain, shortness of breath, nausea, vomiting, lightheadedness, loss of consciousness or near loss of consciousness, numbness or tingling. Current Hospital Diet Patient's current hospital diet: Regular Diet Discharge Diet Recommended Diet: AHA Diet (Heart Healthy) Procedures Procedures Performed: Echocardiogram Pending Studies Studies pending at discharge: no Laboratory Results Hemoglobin A1c Test 07/20/16 10:35 Range/Units Estimated Average Glucose 140 mg/dl Hemoglobin A1c 6.5 H 4.5-5.6 % Lipid Panel Test 07/20/16 10:35 Range/Units Triglycerides Level 93 0-150 mg/dl Cholesterol Level 152 0-200 mg/dl HDL Cholesterol 50 mg/dl Cholesterol/HDL Ratio 3.0 LDL Cholesterol, Calculated 83 mg/dl Medical Emergencies . Who to Call and When: Medical Emergencies: If at any time you feel your situation is an emergency, please call 911 immediately. . Non-Emergent Contact Non-Emergency issues call your: Primary Care Provider Call Non-Emergent contact if: you have a fever, your pain is not controlled, your pain is worsening, your pain is unusual for you, your pain is concerning you, you have any medication questions . Past History Medical & Surgical History: (1) Left knee pain (2) Syncope . "Provider Documentation" section prepared by Maria Esther Arzola. . VTE Core Measure Inpt VTE Proph given/why not?: Enoxaparin (Lovenox)NONA, T.EBonilla Rodriguez, SCD's
--- NOTE | 2016-10-04 09:05 | PROGRESS NOTE ---
DATE: 10/04/2016 SUBJECTIVE: A 61-year-old female admitted with syncopal episode and left knee pain. She is doing better today. The knee is a little bit less painful. She did get up and walk with a walker. OBJECTIVE: VITAL SIGNS: Temperature 36.9. Vital signs stable. PHYSICAL EXAMINATION: EXTREMITIES: Examination of the left knee reveals just a small knee effusion. She can do a straight leg raise. Range of motion is 0-90 degrees with some moderate pain. No varus or valgus instability. She is neurologically intact. X-RAYS: CT scan of the left knee was reviewed. It shows a small joint effusion. She has got some moderate degenerative changes in the knee. There is no fracture. ASSESSMENT: A 61-year-old female status post syncopal episode and left knee injury consistent with a knee contusion with some aggravation of some underlying arthritis. There is no fracture and CT scan is pretty definitive from that standpoint. PLAN: From an orthopedic standpoint, she can weightbear as tolerated. This will take some time to just resolve. If medically able, she can take some anti-inflammatories. She can progress activities as tolerated. She is acceptable for discharge from my standpoint. Any questions can be directed to me at [phone]. [facility]
--- NOTE | 2016-10-04 11:32 | Discharge Summary ---
Discharge Summary Date of Service October 04, 2016. (Maria Esther Arzola .SHIVANI-C) Discharge Summary Admission Date: October 02, 2016 at 19:34 Discharge Date: October 04, 2016 Discharge Disposition: Home Principal Diagnosis: Syncope, left knee pain Immunizations: Have You Had Influenza Vaccine: N/A History of Tetanus Vaccine?: Yes Tetanus Immunization Date: Nov 15, 1999 History of Pneumococcal: Yes History of Hepatitis B Vaccine: Unknown Procedures: Echocardiogram: * -- Conclusions -- * The left ventricle is normal in size. * There is normal left ventricular wall thickness. * LVEF 65% * The left ventricular wall motion is normal. * The right ventricle is normal in size and function. * The right ventricular systolic function is normal as assessed by tricuspid annular plane systolic excursion (TAPSE) (normal >1.5 cm). * There is moderate mitral annular calcification. * Normal PA pressures * Grade I diastolic dysfunction, (abnormal relaxation pattern). (Maria Esther Arzola, SHIVANI-C) Medication Reconciliation New Medications: Naproxen (Naproxen) 250 Mg Tab 250 MG PO BID PRN for pain for 30 Days, #60 TAB Take 1 tablet by mouth twice a day as needed for pain. Continued Medications: Atorvastatin (Lipitor) 40 Mg Tab 40 MG PO DAILY, TAB Bupropion (Wellbutrin Sr) 150 Mg Ertab 150 MG PO BID, TAB Dexlansoprazole (Dexilant) 30 Mg Cap 30 MG PO QAM Fluticasone Propionate (Nasal) (Flonase Allergy Relief) 50 Mcg/Act Spr 2 SPRAYS TRIXIE DAILY PRN for Nasal Congestion Lisinopril (Prinivil) 10 Mg Tab 10 MG PO DAILY, TAB Referrals At Discharge Follow up Referrals: Family Practice Referral - Within 1 Week with Isabel Kate MD Discharge Exam Patient reports feeling well. She denies any lightheadedness, weakness or fatigue. She states that her left knee pain has greatly improved from yesterday. She currently does not have any knee pain at rest in the bed, but she does complain of 4/10 sharp pain in the left knee when weight bearing. Today she was able to go to the bathroom and bear weight on the affected limb with 1+ assist and a walker. The patient is able to do active ROM of her left leg now with minimal tenderness. She no longer has any numbness or tingling in the left toes. The patient denies fevers, chills, sweats, chest pain, palpitations, claudication, cough, wheezing, shortness of breath, nausea, vomiting, abdominal pain, dysuria, hematuria, urinary retention, paralysis, weakness, numbness and tingling. Review of Systems: Constitutional: No chills, No fatigue, No fever, No sweats, No weakness Eyes: No diplopia, No eye pain, No worsening of vision ENT: No hearing loss, No sore throat, No trouble swallowing Respiratory: No cough, No shortness of breath, No wheezing Cardiovascular: No chest pain, No claudication, No palpitations Abdomen: No nausea, No pain, No vomiting Musculoskeletal: + joint pain (4/10 sharp left knee with weight bearing), No calf pain, No muscle pain Genitourinary - Female: No dysuria, No hematuria, No urinary retention Neurologic: No numbness/tingling, No paralysis, No weakness Integumentary: No color change, No itch, No rash Physical Exam: General Appearance: WD/WN, no apparent distress Eyes: normal inspection, PERRL, EOMI ENT: normal ENT inspection, hearing grossly normal, pharynx normal Neck: supple, no JVD, trachea midline Respiratory/Chest: lungs clear, normal breath sounds, no respiratory distress Cardiovascular: regular rate, rhythm, no gallop, no murmur Abdomen / GI: normal bowel sounds, non tender, soft Extremities: normal inspection, no pedal edema, + pertinent finding (ROM still limited due to pain but improved. Medial and lateral aspects of left knee TTP) Neurologic/Psychiatric: alert, normal mood/affect, oriented x 3 Skin: normal color, warm/dry, no rash (Maria Esther Arzola ., PA-C) Hospital Course 61-year-old female with a history of hypertension, hyperlipidemia, GERD, and impaired glucose tolerance who presented to the ED following a syncopal episode and with left knee pain. Syncope--stable. Pt feeling well and no other syncopal episodes. Appears to be a vasovagal episode. -Admit to telemetry. No acute events overnight. Patient remained in sinus rhythm with heart rate in the 70s -Troponin negative 3. -Echocardiogram grossly unremarkable -Dehydration resolved. BUN within normal limits Left knee pain--improving -Patient able to weight bear today with only 4/10 pain. Has not taken any pain meds for over 24 hours -Orthopedics consulted, appreciate recs: Weight bear and return to activities as tolerated. Can take anti-inflammatories. Stable for discharge from ortho standpoint. -CT left lower extremity shows small left knee joint effusion and degenerative changes. No fractures. -PT/OT ordered, evaluate and treat: pt doing well, clear for discharge to home with assisting. pt has access to walker at home if needed. HTN--stable -Continue lisinopril 10 mg PO qd HLD -Continue atorvastatin 40 mg PO qd IGT--last HgbA1c was 6.5 on 07/20/16 -No sliding scale needed DVT prophylaxis -Enoxaparin 40 mg SC q24h Code Status -Level I, FULL RESUSCITATION STATUS This chart was completed in part utilizing [employer] Speech Voice Recognition software. Attempts were made to minimize the grammatical errors, random word insertions, pronoun errors and incomplete sentences. Any formal questions or concerns about the content, text or information contained within the body of this dictation should be directly addressed to the provider for clarification. Total Time Spent: Greater than 30 minutes This includes examination of the patient, discharge planning, medication reconciliation, and communication with other providers. (Maria Esther Arzola ., PA-C) I agree with PA assessment and plan and have seen and examined pt myself Resting comfortably in bed VSS Left knee pain resolved PT/OT ok to go home No fx on CT scan No likely neurological or cardiac etiology for syncope DC home with NSAIDs PRN knee pain Rec frequent meals and appropriate hydration to minimize vasovagal episodes (Roger Erazo D.[email or web address]) Discharge Instructions Please refer to the electronic Patient Visit Report (Discharge Instructions) for additional information. (Maria Esther Arzola ., PA-C)
[2016-10-04 13:37] VITALS: BP 128/85; PULSE 70; TEMP 36.9; O2SAT 96
== END 2016-10-04 13:30 | disposition home or self-care (01) ==
LOC: ENRESERVDT → ENRESERVTM → EDBD 16:21 → C.EDB 16:23 → C.2T 19:34 → C.MSW 10-03 17:45
PROVIDERS: ADMIT Family Medicine; ATTEND Hospitalist
DX: R55 Syncope and collapse (principal); M25.562 Pain in left knee; Z91.81 History of falling; E11.9 Type 2 diabetes mellitus without complications; I10 Essential (primary) hypertension; E78.5 Hyperlipidemia, unspecified; K21.9 Gastro-esophageal reflux disease without esophagitis; Z79.899 Other long term (current) drug therapy; Z90.49 Acquired absence of other specified parts of digestive tract; Z88.0 Allergy status to penicillin; Z80.0 Family history of malignant neoplasm of digestive organs; Z91.013 Allergy to seafood; Z83.3 Family history of diabetes mellitus; Z80.3 Family history of malignant neoplasm of breast

== ENCOUNTER → 2017-01-29 | Outpatient (CLI) | payer OTHER ==
[~2017-01-29] MED LIST changes: -AMR2 PO; +ATOR-24 PO; +BUPR-79 PO; -CLIN300C10 PO; +DEXL30CA5 PO; +FLUT0.15 NAE; -LCTX PO; +LISI10TA PO; -MULTTAB58 PO; +NPR250 PO; -NSNN50 NAE
[2017-01-29 11:14] LABS: BLOOD UREA NITROGEN 15 mg/dl (7-18); BUN/CREATININE RATIO 13.3 (10-20); CALCIUM 9.8 mg/dl (8.5-10.1); CARBON DIOXIDE 31 mmol/L (21-32); CHLORIDE 105 mmol/L (98-107); GLUCOSE 108 mg/dl (70-99); POTASSIUM 4.3 mmol/L (3.5-5.1); SODIUM 140 mmol/L (136-145)
[2017-01-29 11:27] LABS: ESTIMATED AVERAGE GLUCOSE 131 mg/dl; HA1C FLAG Normal (Normal)
== END | disposition home or self-care (01) ==
LOC: C.LABBC 08:43
PROVIDERS: ATTEND Family Medicine
DX: R73.03 Prediabetes (principal)

== ENCOUNTER → 2017-02-08 | Outpatient (CLI) | payer OTHER ==
--- NOTE | 2017-02-08 14:52 | DIAGNOSTIC IMAGING REPORT ---
CHEST 2 VIEWS ROUTINE CLINICAL HISTORY: R93.8 Abnormal chest xrayPt with possbile basilar nodule COMPARISON STUDY: 10/02/2016 FINDINGS: The cardiac and mediastinal contours remain stable. The previously identified left basilar opacity is no longer evident. A subcentimeter right basilar opacity is identified which was not visualized on the prior study. This is felt to represent a summation. There is no focal pulmonary consolidation. There is no failure. There are no pleural effusions.[ IMPRESSION: No active disease in the chest. Electronically signed by: Russell Alcaraz M.D. 02/08/2017 2:51 PM Dictated Date/Time: 02/08/2017 2:49 PM
== END | disposition home or self-care (01) ==
LOC: C.RADBC 14:02
PROVIDERS: ATTEND Family Medicine
DX: R93.8 Abnormal findings on diagnostic imaging of other specified body structures (principal)

== ENCOUNTER 2017-06-06 09:59 | Observation (INO) | payer OTHER ==
[~2017-06-06] VITALS: Ht 7.6 cm; Wt 70.4 kg
[2017-06-06 10:36] LABS: BASO % 0.2 %; BASO ABS # 0.02 K/uL (0-0.2); EOS % 1.5 %; EOS ABS # 0.13 K/uL (0-0.5); HEMATOCRIT 40.9 % (37-47); IG# 0.02 K/uL (0.00-0.02); LYMPH % 18.2 %; MEAN CELL VOLUME 91.5 fL (80-100); MEAN CORPUSCULAR HEMOGLOBIN 31.3 pg (25-34); MEAN CORPUSCULAR HGB CONC 34.2 g/dl (32-36); MEAN PLATELET VOLUME 10.7 fL (7.4-10.4); MONO % 5.8 %; MONO ABS # 0.51 K/uL (0.11-0.59); NEUT % 74.1 %; NEUT ABS # 6.53 K/uL (1.4-6.5); PLATELET COUNT 233 K/uL (130-400); RED CELL DISTRIBUTION WIDTH CV 12.3 % (11.5-14.5); RED CELL DISTRIBUTION WIDTH SD 41.5 fL (36.4-46.3); WHITE BLOOD COUNT 8.81 K/uL (4.8-10.8)
[2017-06-06 10:47] LABS: PTT PATIENT 24.1 SECONDS (21.0-31.0)
[2017-06-06] MEDS ORDERED: LISI-729 PO (10:50)
[2017-06-06 10:53] LABS: ALBUMIN 3.6 gm/dl (3.4-5.0); ALT/SGPT 24 U/L (12-78); AST/SGOT 16 U/L (15-37); BLOOD UREA NITROGEN 20 mg/dl (7-18); CALCIUM 9.1 mg/dl (8.5-10.1); CARBON DIOXIDE 27 mmol/L (21-32); CREATININE 0.96 mg/dl (0.60-1.20); GLUCOSE 116 mg/dl (70-99); SODIUM 140 mmol/L (136-145)
[2017-06-06 11:04] LABS: ALKALINE PHOSPHATASE 74 U/L (45-117)
--- NOTE | 2017-06-06 11:09 | DIAGNOSTIC IMAGING REPORT ---
CHEST ONE VIEW PORTABLE CLINICAL HISTORY: Syncope. COMPARISON STUDY: Chest radiograph February 08, 2017. FINDINGS: There is no pneumothorax or pleural effusion. Lungs are clear. Pulmonary vascularity is normal. Cardiomediastinal silhouette is stable. The appearance of the chest is unchanged. IMPRESSION: No acute cardiopulmonary findings. Electronically signed by: Osiel Henry M.D. 06/06/2017 11:08 AM Dictated Date/Time: 06/06/2017 11:07 AM
--- NOTE | 2017-06-06 12:00 | DIAGNOSTIC IMAGING REPORT ---
CT OF THE HEAD WITHOUT CONTRAST CLINICAL HISTORY: Syncope. Evaluate for bleed. History of CSF leak. COMPARISON STUDY: No previous studies for comparison. CT DOSE: 537.48 mGy.cm TECHNIQUE: Helical axial images of the head were obtained without IV contrast. Automated exposure control was utilized for the study. A dose lowering technique was utilized adhering to the principles of ALARA. FINDINGS: No acute intracranial hemorrhage, midline shift or mass effect is present. Ventricular system is normal. Basilar cisterns are patent. Prominence of extra-axial CSF spaces is likely due to atrophy. There is a suspected prominent perivascular space within the right temporal lobe. There are no findings to suggest acute dural sinus thrombosis or acute territorial infarct. There are postsurgical findings involving the left mastoid air cells. There are left mastoid air cells are partially opacified. There are no significant calvarial abnormalities. IMPRESSION: 1. No acute intracranial hemorrhage or mass effect. 2. Prominence of the extra-axial CSF spaces. This is likely due to atrophy. Sequela of intracranial hypotension could appear similar given the history of CSF leak although this is considered less likely. 3. Postsurgical findings involving the left mastoid air cells with moderate amount of fluid within left mastoid air cells. Electronically signed by: Osiel Henry M.D. 06/06/2017 11:59 AM Dictated Date/Time: 06/06/2017 11:53 AM
[2017-06-06 13:10] VITALS: O2SAT 100; Ht 7.6 cm; Wt 70.4 kg
[2017-06-06] MEDS ORDERED: ACETAMINOPHEN 325 MG TAB PO PRN (14:15)
[2017-06-06] MEDS ORDERED: POLYETHYLENE (MIRALAX) 17 GM PACK PO PRN (14:15)
--- NOTE | 2017-06-06 14:28 | EMERGENCY ROOM VISIT NOTE ---
History Report prepared by Kaylan: Rochelle Morales Under the Supervision of: Dr. Charles Prado M.D. 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 The patient was kneeling in adventism when she started feeling nauseous and cold sweats. She started feeling dizzy and passed out. She was out for 1-2 minutes. She did not have any seizure like activity. She hit her forehead on the pew. Currently, she is feeling slightly weak and dizzy, but improved. It was not hot in the adventism. She was feeling well when she woke up this morning. She had some crackers this morning for breakfast. She notes that this is similar to her previous episode of syncope. Since then, she had surgery for a spontaneous CSF leak. She has decreased hearing in her left ear from the CSF leak. The patient is unsure if this CSF leak was related to her first episode of syncope. It was discovered in December while her syncope occurred in September. She denies any chest pain, SOB, palpitations , abdominal pain, diarrhea, vomiting, black stools, bloody stools, numbness, or neck pain. 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 Pt denies palpitations. Review of Systems See HPI for pertinent positives & negatives. A total of 10 systems reviewed and were otherwise negative. Past Medical & Surgical Medical Problems: (1) Diabetes (2) Left knee pain (3) Syncope Family History No significant family history Social History Smoking Status: Never Smoker Alcohol Use: none Drug Use: none Marital Status: Housing Status: lives with significant other Current/Historical Medications Scheduled Atorvastatin (Lipitor), 40 MG PO DAILY Bupropion (Wellbutrin Sr), 150 MG PO BID Lisinopril (Prinivil), 5 MG PO DAILY Scheduled PRN Fluticasone Propionate (Nasal) (Flonase Allergy Relief), 2 SPRAYS TRIXIE DAILY PRN for Nasal Congestion Allergies Coded Allergies: Shellfish (Verified Allergy, Unknown, `, 06/06/17) Penicillins (Verified Adverse Reaction, Mild, GI DISTRESS, 06/06/17) Physical Exam Vital Signs Date Time Temp Pulse Resp B/P (MAP) Pulse Ox O2 Delivery O2 Flow Rate FiO2 06/06/17 13:35 64 16 129/87 100 Room Air 06/06/17 13:10 100 Room Air 06/06/17 12:32 61 16 129/103 100 Room Air 06/06/17 11:29 62 16 128/86 96 Room Air 06/06/17 10:13 74 06/06/17 10:10 69 133/100 74 151/106 77 141/89 06/06/17 10:03 36.4 66 20 139/87 100 Room Air Physical Exam Constitutional: Vital signs reviewed. Eyes: Pupils are equal round reactive to light. Conjunctiva are noninjected. ENT: Pharynx is clear without erythema or exudate. Mucous membranes are moist. Neck supple without meningeal signs. Respiratory: Clear to auscultation bilaterally. Breath sounds are equal bilaterally. Cardiovascular: Regular rate and rhythm. No rubs or gallops. GI: Soft, nondistended and nontender. Bowel sounds are present. Musculoskeletal: No peripheral edema. No lower extremity tenderness. Integumentary: No cyanosis. Neurological: The patient is awake and alert. Cranial nerves II-XII are intact , except diminished hearing in the left ear which is chronic. Motor is 5 out of 5 all extremities. Sensation is intact to light touch all extremities. Normal speech. No pronator drift. Psychiatric: Normal affect. Medical Decision & Procedures ER Provider Diagnostic Interpretation: X-ray results as stated below per interpretation by me and the radiologist. Radiology results as stated below per my review and the radiologist's interpretation: CHEST ONE VIEW PORTABLE CLINICAL HISTORY: Syncope. COMPARISON STUDY: Chest radiograph February 08, 2017. FINDINGS: There is no pneumothorax or pleural effusion. Lungs are clear. Pulmonary vascularity is normal. Cardiomediastinal silhouette is stable. The appearance of the chest is unchanged. IMPRESSION: No acute cardiopulmonary findings. Electronically signed by: Osiel Henry M.D. 06/06/2017 11:08 AM Dictated Date/Time: 06/06/2017 11:[address] OF THE HEAD WITHOUT CONTRAST CLINICAL HISTORY: Syncope. Evaluate for bleed. History of CSF leak. COMPARISON STUDY: No previous studies for comparison. CT DOSE: 537.48 mGy.cm TECHNIQUE: Helical axial images of the head were obtained without IV contrast. Automated exposure control was utilized for the study. A dose lowering technique was utilized adhering to the principles of ALARA. FINDINGS: No acute intracranial hemorrhage, midline shift or mass effect is present. Ventricular system is normal. Basilar cisterns are patent. Prominence of extra-axial CSF spaces is likely due to atrophy. There is a suspected prominent perivascular space within the right temporal lobe. There are no findings to suggest acute dural sinus thrombosis or acute territorial infarct. There are postsurgical findings involving the left mastoid air cells. There are left mastoid air cells are partially opacified. There are no significant calvarial abnormalities. IMPRESSION: 1. No acute intracranial hemorrhage or mass effect. 2. Prominence of the extra-axial CSF spaces. This is likely due to atrophy. Sequela of intracranial hypotension could appear similar given the history of CSF leak although this is considered less likely. 3. Postsurgical findings involving the left mastoid air cells with moderate amount of fluid within left mastoid air cells. Electronically signed by: Oisel Henry M.D. 06/06/2017 11:59 AM Dictated Date/Time: 06/06/2017 11:53 AM Laboratory Results 06/06/17 10:20 Red Blood Count 4.47, Mean Corpuscular Volume 91.5, Mean Corpuscular Hemoglobin 31.3, Mean Corpuscular Hemoglobin Concent 34.2, Mean Platelet Volume 10.7, Neutrophils (%) (Auto) 74.1, Lymphocytes (%) (Auto) 18.2, Monocytes (%) (Auto) 5.8, Eosinophils (%) (Auto) 1.5, Basophils (%) (Auto) 0.2, Neutrophils # (Auto) 6.53, Lymphocytes # (Auto) 1.60, Monocytes # (Auto) 0.51, Eosinophils # (Auto) 0.13, Basophils # (Auto) 0.02 06/06/17 10:20 Test 06/06/17 10:20 06/06/17 11:29 White Blood Count 8.81 K/uL (4.8-10.8) Red Blood Count 4.47 M/uL (4.2-5.4) Hemoglobin 14.0 g/dL (12.0-16.0) Hematocrit 40.9 % (37-47) Mean Corpuscular Volume 91.5 fL (80-100) Mean Corpuscular Hemoglobin 31.3 pg (25-34) Mean Corpuscular Hemoglobin Concent 34.2 g/dl (32-36) Platelet Count 233 K/uL (130-400) Mean Platelet Volume 10.7 fL (7.4-10.4) Neutrophils (%) (Auto) 74.1 % Lymphocytes (%) (Auto) 18.2 % Monocytes (%) (Auto) 5.8 % Eosinophils (%) (Auto) 1.5 % Basophils (%) (Auto) 0.2 % Neutrophils # (Auto) 6.53 K/uL (1.4-6.5) Lymphocytes # (Auto) 1.60 K/uL (1.2-3.4) Monocytes # (Auto) 0.51 K/uL (0.11-0.59) Eosinophils # (Auto) 0.13 K/uL (0-0.5) Basophils # (Auto) 0.02 K/uL (0-0.2) RDW Standard Deviation 41.5 fL (36.4-46.3) RDW Coefficient of Variation 12.3 % (11.5-14.5) Immature Granulocyte % (Auto) 0.2 % Immature Granulocyte # (Auto) 0.02 K/uL (0.00-0.02) Prothrombin Time 10.5 SECONDS (9.0-12.0) Prothromb Time International Ratio 1.0 (0.9-1.1) Activated Partial Thromboplast Time 24.1 SECONDS (21.0-31.0) Partial Thromboplastin Ratio 0.9 Anion Gap 5.0 mmol/L (3-11) Estimated GFR () 72.9 Estimated GFR (Non- 62.9 BUN/Creatinine Ratio 21.0 (10-20) Calcium Level 9.1 mg/dl (8.5-10.1) Magnesium Level 2.2 mg/dl (1.8-2.4) Total Bilirubin 0.3 mg/dl (0.2-1) Direct Bilirubin < 0.1 mg/dl (0-0.2) Aspartate Amino Transf (AST/SGOT) 16 U/L (15-37) Alanine Aminotransferase (ALT/SGPT) 24 U/L (12-78) Alkaline Phosphatase 74 U/L (45-117) Troponin I 0.026 ng/ml (0-0.045) Total Protein 7.0 gm/dl (6.4-8.2) Albumin 3.6 gm/dl (3.4-5.0) Thyroid Stimulating Hormone (TSH) 2.410 uIu/ml (0.300-4.500) Urine Color YELLOW Urine Appearance CLEAR (CLEAR) Urine pH 6.5 (4.5-7.5) Urine Specific [place] 1.019 (1.000-1.030) Urine Protein NEG (NEG) Urine Glucose (UA) NEG (NEG) Urine Ketones NEG (NEG) Urine Occult Blood NEG (NEG) Urine Nitrite NEG (NEG) Urine Bilirubin NEG (NEG) Urine Urobilinogen NEG (NEG) Urine Leukocyte Esterase NEG (NEG) Laboratory results as reviewed by me. ECG Indication: syncope Rate (beats per minute): 64 Rhythm: normal sinus Findings: no acute ischemic change, no ectopy ED Course 1014: The patient was evaluated in room C9. A complete history and physical exam was performed. 1215: I reevaluated the patient. She is still feeling a little weak and dizzy, but better than when she arrived. I discussed the test results with her. I recommended hospitalization. She verbalized agreement of the treatment plan. She will be evaluated for further management. 1227: I spoke with Dr. Nash of [facility] hospitalist service. We discussed the patient and her results. The patient will be further evaluated by her. Medical Decision This is a 62-year-old female who presents with a syncopal episode. Differential diagnosis includes dysrhythmia, vasovagal syncope, orthostatic hypotension, metabolic derangement, intracranial hemorrhage. I did perform a limited focused review of portions of the patient's old chart on the electronic medical record. The patient was admitted in September of last year for syncope. She had an unremarkable echocardiogram. Her syncope was thought to be vasovagal. I did evaluate the patient as noted above. The patient had a spontaneous syncopal episode prior to arrival. She is currently feeling weak and dizzy. She did hit her head and has a GCS of 15. IV access was established. The patient was placed on a continuous cardiac cath tech. I did order and personally review the patient's 12-lead EKG and chest x-ray as described above. I did order and review the patient's blood work as noted in the electronic medical record. Lab work is unremarkable. Urinalysis does not show signs of infection or blood. I did order a CT of the head. I did review the images myself as well as the radiology report as described above. There is some CSF prominence which was thought to be likely from atrophy per the radiologist. I did reassess patient. She is feeling better but still has some weakness. I did discuss the test results with the patient. I did recommend hospitalization for further evaluation of her syncope. I did discuss case with the hospitalist and counter caser. Head Trauma GCS Score: 15 Medication Reconcilliation Current Medication List: was personally reviewed by me Blood Pressure Screening Patient's blood pressure: Elevated blood pressure Blood pressure disposition: Referred to PCP Consults Time Called: 1217 Consulting Physician: Dr. Nash of [facility] hospitalist service Returned Call: 1227 I spoke with her. We discussed the patient and her results. The patient will be further evaluated by her. Impression Primary Impression: Syncope Additional Impression: Head injury Scribe Attestation The scribe's documentation has been prepared under my direct and personally reviewed by me in its entirety. I confirm that the note above accurately reflects all work, treatment, procedures, and medical decision making performed by me. Departure Information Dispostion Being Evaluated By Hospitalist Referrals Isabel Kate MD (PCP) Patient Instructions My [facility] Problem Qualifiers Primary Impression: Syncope Syncope type: unspecified Qualified Codes: R55 - Syncope and collapse Additional Impression: Head injury Encounter type: initial encounter Qualified Codes: S09.90XA - Unspecified injury of head, initial encounter
[2017-06-06] MEDS ORDERED: FLUTICASONE PROPIONATE NA SPR 16 GM BTL NAE PRN (14:30)
[2017-06-06] MEDS ORDERED: IV FLUIDS COMPLETED PRN (15:00)
--- NOTE | 2017-06-06 15:06 | History and Physical ---
History & Physical Date & Time of Service: Jun 06, 2017 at 14:40 Chief Complaint: Fainted Primary Care Physician: Isabel Kate MD History of Present Illness Source: patient This patient is a 62-year-old female with a history of hypertension, hyperlipidemia, depression, chronic diastolic CHF, GERD, allergic rhinitis, prediabetes, and a recent left sided craniectomy for CSF leak repair, who presents to the ER after an [place]. She reports feeling nauseated when she walked down the aisle to receive communion, and then when she returned to the [facility] and went on her knees to kneel, she passed out and slumped over the few in front of her for a few minutes as per witness report. When she woke up, she had a mild headache, 2-3 out of 10 in severity, but no other symptoms. Her orthostatic vital signs were negative in the ER. Her laboratory values and vital signs were otherwise normal. Her ECG was unremarkable. Her CT of the head showed postsurgical changes and atrophy versus CSF hypotension. She reports a few sips of small water with her pills this morning was her only by mouth intake, but that that is not uncommon for her. Since she retired, she frequently does not eat breakfast or drink anything until 9 or 10 AM. Her syncope occurred at the 8:00 [facility] service. She denies chest pain or palpitations, denies weakness/numbness/tingling. She has chronic left-sided hearing loss since her CSF leak and repair, but no other new symptoms, specifically no drainage from the left ear. She was seen by her ENT 1 week ago and was given a good report at that time. Of note, she was admitted in September 2016 for what was deemed to be vasovagal syncope and had a normal cardiac workup at that point. She'll be admitted overnight for observation on telemetry for recurrent syncope. Past Medical/Surgical History PMH: Hypertension Hyperlipidemia Depression Chronic diastolic CHF GERD Allergic rhinitis Prediabetes Chronic left-sided hearing loss PSH: H/o left sided craniectomy for CSF leak repair Cholecystectomy KEVIN with BSO Family History No significant family history Mother-diabetes, breast cancer Father- at age 53 of unknown causes, suspected ruptured aneurysm Sister-healthy Social History Smoking Status: Never Smoker Alcohol Use: none Drug Use: none Marital Status: Housing status: lives with significant other Occupational Status: retired Immunizations History of Influenza Vaccine: N/A History of Tetanus Vaccine?: Yes Tetanus Immunization Date: Nov 15, 1999 History of Pneumococcal: Yes History of Hepatitis B Vaccine: Unknown Multi-Drug Resistant Organisms History of MDRO: No Allergies Coded Allergies: Shellfish (Verified Allergy, Unknown, `, 06/06/17) Penicillins (Verified Adverse Reaction, Mild, GI DISTRESS, 06/06/17) Home Medications Scheduled Atorvastatin (Lipitor), 40 MG PO DAILY Bupropion (Wellbutrin Sr), 150 MG PO BID Lisinopril (Prinivil), 5 MG PO DAILY Scheduled PRN Fluticasone Propionate (Nasal) (Flonase Allergy Relief), 2 SPRAYS TRIXIE DAILY PRN for Nasal Congestion Review of Systems Constitutional: No fever, No chills Eyes: No problem reported ENT: No problem reported Respiratory: No problem reported Cardiovascular: No problem reported Abdomen: + nausea, + constipation (chronic), No diarrhea, No GI bleeding Musculoskeletal: No problem reported Genitourinary - Female: No problem reported Neurologic: No problem reported Psychiatric: No problem reported Endocrine: No problem reported Hematologic / Lymphatic: No problem reported Integumentary: No problem reported Allergic / Immunologic: No problem reported Physical Exam Vital Signs Date Time Temp Pulse Resp B/P (MAP) Pulse Ox O2 Delivery O2 Flow Rate FiO2 06/06/17 13:35 64 16 129/87 100 Room Air 06/06/17 13:10 100 Room Air 06/06/17 12:32 61 16 129/103 100 Room Air 06/06/17 11:29 62 16 128/86 96 Room Air 06/06/17 10:13 74 06/06/17 10:10 69 133/100 74 151/106 77 141/89 06/06/17 10:03 36.4 66 20 139/87 100 Room Air General Appearance: WD/WN, no apparent distress Head: normocephalic, atraumatic Eyes: normal inspection, PERRL, EOMI ENT: normal ENT inspection, TMs normal (no drainage or fluid seen in the EACs or behind TMs), pharynx normal Neck: supple, no adenopathy, thyroid normal, no JVD, trachea midline Respiratory/Chest: lungs clear, normal breath sounds, no respiratory distress, no accessory muscle use Cardiovascular: regular rate, rhythm, no edema, no gallop, no JVD, no murmur, normal peripheral pulses Abdomen/GI: normal bowel sounds, non tender, soft, no organomegaly, no pulsatile mass Back: normal inspection Extremities/Musculoskelatal: normal inspection, no calf tenderness, normal capillary refill, no pedal edema, normal range of motion Neurologic/Psych: insulation manager II-XII nml as tested (except decreased hearing in left ear), no motor/sensory deficits, alert, normal mood/affect, normal reflexes, oriented x 3 Skin: normal color, warm/dry, no rash Lymphatic: no adenopathy Diagnostics Laboratory Results Results Past 24 Hours Test 06/06/17 10:20 06/06/17 11:29 Range/Units White Blood Count 8.81 4.8-10.8 K/uL Red Blood Count 4.47 4.2-5.4 M/uL Hemoglobin 14.0 12.0-16.0 g/dL Hematocrit 40.9 37-47 % Mean Corpuscular Volume 91.5 80-100 fL Mean Corpuscular Hemoglobin 31.3 25-34 pg Mean Corpuscular Hemoglobin Concent 34.2 32-36 g/dl Platelet Count 233 130-400 K/uL Mean Platelet Volume 10.7 7.4-10.4 fL Neutrophils (%) (Auto) 74.1 % Lymphocytes (%) (Auto) 18.2 % Monocytes (%) (Auto) 5.8 % Eosinophils (%) (Auto) 1.5 % Basophils (%) (Auto) 0.2 % Neutrophils # (Auto) 6.53 1.4-6.5 K/uL Lymphocytes # (Auto) 1.60 1.2-3.4 K/uL Monocytes # (Auto) 0.51 0.11-0.59 K/uL Eosinophils # (Auto) 0.13 0-0.5 K/uL Basophils # (Auto) 0.02 0-0.2 K/uL RDW Standard Deviation 41.5 36.4-46.3 fL RDW Coefficient of Variation 12.3 11.5-14.5 % Immature Granulocyte % (Auto) 0.2 % Immature Granulocyte # (Auto) 0.02 0.00-0.02 K/uL Prothrombin Time 10.5 9.0-12.0 SECONDS Prothromb Time International Ratio 1.0 0.9-1.1 Activated Partial Thromboplast Time 24.1 21.0-31.0 SECONDS Partial Thromboplastin Ratio 0.9 Sodium Level 140 136-145 mmol/L Potassium Level 4.0 3.5-5.1 mmol/L Chloride Level 108 98-107 mmol/L Carbon Dioxide Level 27 21-32 mmol/L Anion Gap 5.0 3-11 mmol/L Blood Urea Nitrogen 20 7-18 mg/dl Creatinine 0.96 0.60-1.20 mg/dl Estimated GFR () 72.9 Estimated GFR (Non- 62.9 BUN/Creatinine Ratio 21.0 10-20 Random Glucose 116 70-99 mg/dl Calcium Level 9.1 8.5-10.1 mg/dl Magnesium Level 2.2 1.8-2.4 mg/dl Total Bilirubin 0.3 0.2-1 mg/dl Direct Bilirubin < 0.1 0-0.2 mg/dl Aspartate Amino Transf (AST/SGOT) 16 15-37 U/L Alanine Aminotransferase (ALT/SGPT) 24 12-78 U/L Alkaline Phosphatase 74 45-117 U/L Troponin I 0.026 0-0.045 ng/ml Total Protein 7.0 6.4-8.2 gm/dl Albumin 3.6 3.4-5.0 gm/dl Thyroid Stimulating Hormone (TSH) 2.410 0.300-4.500 uIu/ml Urine Color YELLOW Urine Appearance CLEAR CLEAR Urine pH 6.5 4.5-7.5 Urine Specific [place] 1.019 1.000-1.030 Urine Protein NEG NEG Urine Glucose (UA) NEG NEG Urine Ketones NEG NEG Urine Occult Blood NEG NEG Urine Nitrite NEG NEG Urine Bilirubin NEG NEG Urine Urobilinogen NEG NEG Urine Leukocyte Esterase NEG NEG CXR normal Normal EKG Impression Assessment and Plan This patient is a 62-year-old female with a history of hypertension, hyperlipidemia, depression, chronic diastolic CHF, GERD, allergic rhinitis, prediabetes, and a recent left sided craniectomy for CSF leak repair, who presents to the ER after an [facility] of [facility]. She reports feeling nauseated when she walked down the aisle to receive communion, and then when she returned to the [facility] and went on her knees to kneel, she passed out and slumped over the few in front of her for a few minutes as per witness report. When she woke up, she had a mild headache, 2-3 out of 10 in severity, but no other symptoms. Her orthostatic vital signs were negative in the ER. Her laboratory values and vital signs were otherwise normal. Her ECG was unremarkable. Her CT of the head showed postsurgical changes and atrophy versus CSF hypotension. Syncope/headache-seems that it could be vasovagal in nature. I discussed the case with neurology on the phone given her recent CSF leak and findings on CT scan. Neurology thought it was low probability that a CSF leak would cause syncope. CT head findings are probably more likely related to age-related atrophy. Her orthostatics are negative. Vital signs ECG otherwise normal. This could be cardiogenic in nature, but seems unlikely given a normal echocardiogram 7-8 months ago. -Admit to telemetry for overnight observation -Consult cardiology to get opinion on any further cardiac workup given recurrent syncope -Continue IV fluids -Consult neurology to see if syncope and headache could be related to recent neurosurgery -Tylenol for headache and allow caffeinated beverages if she usually drinks them Hypertension/hyperlipidemia/chronic diastolic CHF-no acute issues at this time -Continue statin, lisinopril GERD-no issues at this time, in fact she stopped taking her PPI at home since she retired Allergic rhinitis-no issues at this time -Continue Flonase nasal spray as needed Prediabetes-last hemoglobin A1c in January 2017 was 6.2% -Sliding-scale insulin, Accu-Cheks -Check hemoglobin A1c in the morning -Not on any home medications Depression-stable -Continue Wellbutrin Prophylaxis-heparin subcutaneously, SCDs Disposition-likely to home tomorrow if medically stable Full Code Level of Care Telemetry Advanced Directives Existing Living Will: No Existing 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 Y/N: Yes Risk Level: Moderate Given or contraindicated: Unfractionated heparin SQ, SCD's Additional Copies To Isabel Kate MD
[2017-06-06] MEDS ORDERED: GLUCOSE 40% GEL 15 GM TUBE PO PRN (15:15)
[2017-06-06] MEDS ORDERED: GLUCOSE 10 TABS/TUBE PO PRN (15:15)
[2017-06-06] MEDS ORDERED: DEXTROSE 50% 50 ML SYR IV PRN (15:15)
[2017-06-06] MEDS ORDERED: GLUCAGON FOR INJ 1 MG VIAL SQ PRN (15:15)
[2017-06-06 16:00] VITALS: O2SAT 100
[2017-06-06 16:15] VITALS: BP 132/70; PULSE 75; TEMP 36.9; O2SAT 100
[2017-06-06] MEDS: INSULIN HUMAN REGULAR SC SCH ×2 (16:30→20:29)
[2017-06-06] MEDS: SODIUM CHLORIDE 0.9% 1000ML 1,000 ML IV SCH (17:20)
[2017-06-06 19:56] VITALS: BP 130/85; PULSE 57; TEMP 36.8; O2SAT 97
[2017-06-06] MEDS: BuPROPion SR 150 MG TABCR PO SCH (20:56)
[2017-06-06] MEDS: HEPARIN SOD 5000 UNIT/0.5 ML CARP SQ SCH (20:56)
[2017-06-06 23:30] VITALS: BP 127/80; PULSE 66; TEMP 36.6; O2SAT 99
[2017-06-07] VITALS (7 sets, daily range): BP systolic 118–139; BP diastolic 73–89; PULSE 66–78; TEMP 36.5–36.8; O2SAT 96–97
[2017-06-07 06:01] LABS: BASO % 0.3 %; BASO ABS # 0.02 K/uL (0-0.2); EOS % 1.4 %; EOS ABS # 0.11 K/uL (0-0.5); HEMOGLOBIN 13.3 g/dL (12.0-16.0); IG# 0.02 K/uL (0.00-0.02); LYMPH % 28.3 %; LYMPH ABS # 2.23 K/uL (1.2-3.4); MEAN CELL VOLUME 91.3 fL (80-100); MEAN CORPUSCULAR HEMOGLOBIN 31.1 pg (25-34); MEAN CORPUSCULAR HGB CONC 34.1 g/dl (32-36); MEAN PLATELET VOLUME 10.8 fL (7.4-10.4); MONO % 8.9 %; NEUT % 60.8 %; PLATELET COUNT 217 K/uL (130-400); RED CELL DISTRIBUTION WIDTH CV 12.6 % (11.5-14.5); RED CELL DISTRIBUTION WIDTH SD 41.8 fL (36.4-46.3); WHITE BLOOD COUNT 7.88 K/uL (4.8-10.8)
[2017-06-07 06:34] LABS: CALCIUM 8.8 mg/dl (8.5-10.1); CREATININE 0.82 mg/dl (0.60-1.20); POTASSIUM 4.3 mmol/L (3.5-5.1)
[2017-06-07] MEDS: SODIUM CHLORIDE 0.9% 1000ML 1,000 ML IV SCH (06:48)
[2017-06-07] MEDS: INSULIN HUMAN REGULAR SC SCH ×2 (07:53→11:00)
[2017-06-07] MEDS: HEPARIN SOD 5000 UNIT/0.5 ML CARP SQ SCH (07:56)
[2017-06-07] MEDS: BuPROPion SR 150 MG TABCR PO SCH (07:57)
[2017-06-07 08:36] LABS: HEMOGLOBIN A1C 5.9 % (4.5-5.6)
[2017-06-07] MEDS ORDERED: ATORVASTATIN 40 MG TAB PO SCH (09:00)
[2017-06-07] MEDS ORDERED: LISINOPRIL 5 MG TAB PO SCH (09:00)
--- NOTE | 2017-06-07 09:27 | Neurology Consultation ---
Neurology Consultation Date of Consultation: Jun 07, 2017. Attending Physician: Liza Nash MD Primary Care Physician: Isabel Kate MD Reason for Consultation: Syncope History of Present Illness Source: patient, hospital records The patient is a 62-year-old female who has been admitted for observation after a syncopal episode that occurred at [facility]. The patient recalls that she was kneeling down when she suddenly felt nauseous, sweaty, and dizzy. She reportedly had a brief loss of consciousness without witnessed convulsive activity. She may have bumped her head on the pew in front of her other the patient denies experiencing any significant trauma. She currently denies headache, dizziness, change in vision, weakness, or sensory loss. The patient had a similar episode in September. She does not have a known history of epilepsy or seizure disorder. 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 She was diagnosed with a CSF leak for which she underwent surgery to the left mastoid area at [facility]. She is not experiencing a recurrence of her spinal headaches. She does have some residual hearing loss to the left. An electrocardiogram revealed a sinus rhythm, 64 bpm. I reviewed the images and radiologist's interpretation of the CT of the head completed upon presentation. The study reveals a prominent extra-axial space suggestive of mild generalized atrophy, although low CSF pressure could not be excluded. There are postsurgical changes involving the left mastoid. Past Medical/Surgical History Medical Problems: (1) Head injury Status: Acute (2) Syncope Status: Acute (3) Tibial plateau fracture Status: Acute Family History Noncontributory Social History Smoking Status: Unknown if ever smoked Alcohol Use: none Drug Use: none Marital Status: Housing Status: lives with significant other Occupation Status: retired Allergies Coded Allergies: Shellfish (Verified Allergy, Unknown, `, 06/06/17) Penicillins (Verified Adverse Reaction, Mild, GI DISTRESS, 06/06/17) Current Inpatient Medications Current Inpatient Medications Medications (Trade) Dose Ordered Sig/Jonah Route Start Time Stop Time Status Last Admin Dose Admin Heparin Sodium (Porcine) (Heparin Sq 5000 Unit/0.5ml) 5,000 unit Q12 SQ 06/06/17 21:00 07/06/17 20:59 Sodium Chloride 1,000 ml @ 75 mls/hr [id number] IV 06/06/17 14:12 07/06/17 14:11 06/07/17 06:48 75 MLS/HR Acetaminophen (Tylenol Tab) 650 mg Q4H PRN PO 06/06/17 14:15 07/06/17 14:14 Polyethylene (Miralax Powder Packet) 17 gm DAILY PRN PO 06/06/17 14:15 07/06/17 14:14 Atorvastatin Calcium (Lipitor Tab) 40 mg DAILY PO 06/07/17 09:00 07/07/17 08:59 06/07/17 07:58 40 MG Bupropion HCl (Wellbutrin-Sr Tab) 150 mg BID PO 06/06/17 21:00 07/06/17 20:59 06/07/17 07:57 150 MG Fluticasone Propionate (Flonase Nasal [place]) 2 sprays DAILY PRN TRIXIE 06/06/17 14:30 07/06/17 14:29 Lisinopril (Zestril Tab) 5 mg DAILY PO 06/07/17 09:00 07/07/17 08:59 Miscellaneous (Iv Fluids Completed) 1 ea PRN PRN N/A 06/06/17 15:00 06/06/18 14:59 Insulin Human Regular (novoLIN-R) SLIDING SCALE IF C... ACHS SC 06/06/17 16:30 07/06/17 16:29 Glucose (Glucose 40% Gel) 15-30 GRAMS 15 GRAMS... UD PRN PO 06/06/17 15:15 07/06/17 15:14 Glucose (Glucose Chew Tab) 4-8 Tablets 4 Tabl... UD PRN PO 06/06/17 15:15 07/06/17 15:14 Dextrose (Dextrose 50% 50ML Syringe) 25-50ML OF 50% DW IV FOR... UD PRN IV 06/06/17 15:15 07/06/17 15:14 Glucagon (Glucagon Inj) 1 mg UD PRN SQ 06/06/17 15:15 07/06/17 15:14 Review of Systems Constitutional: No fever or chills Eyes: No vision loss or diplopia ENT: As per history of present illness Neurological: As per history of present illness Musculoskeletal: No myalgias or arthralgias A full 10 point review of systems was obtained from this patient with pertinent positives and negatives described in history of present illness and otherwise listed above. All remaining systems reviewed and are negative. Physical Exam Vital Signs (Past 24 Hrs): Date Time Temp Pulse Resp B/P (MAP) Pulse Ox O2 Delivery O2 Flow Rate FiO2 06/07/17 08:00 97 Room Air 06/07/17 07:22 36.8 66 18 118/78 (91) 97 Room Air 06/07/17 06:16 133/83 (100) 139/89 (106) 130/78 (95) 06/07/17 04:00 Room Air 06/07/17 04:00 36.8 67 18 128/80 (96) 97 Room Air 06/07/17 00:00 Room Air 06/06/17 23:30 36.6 66 18 127/80 (96) 99 Room Air 06/06/17 20:00 Room Air 06/06/17 19:56 36.8 57 18 130/85 (100) 97 Room Air 06/06/17 16:15 36.9 75 20 132/70 (90) 100 06/06/17 16:00 100 06/06/17 15:34 61 15 125/84 100 06/06/17 15:01 131/75 06/06/17 15:00 64 15 98 Room Air 06/06/17 14:31 134/86 06/06/17 14:30 65 13 100 06/06/17 14:01 121/88 06/06/17 14:00 62 12 100 06/06/17 13:35 64 16 129/87 100 Room Air 06/06/17 13:10 100 Room Air 06/06/17 12:32 61 16 129/103 100 Room Air 06/06/17 11:29 62 16 128/86 96 Room Air 06/06/17 10:13 74 06/06/17 10:10 69 133/100 74 151/106 77 141/89 06/06/17 10:03 36.4 66 20 139/87 100 Room Air The patient is a well-developed, well-nourished elderly female. She is sitting up comfortably in bed and in no acute distress. The patient is alert and fully oriented. Recent and remote memory intact. She is attentive with normal concentration and exhibits a normal spontaneous speech pattern as well as an age -appropriate fund of knowledge. Visual [place] full to confrontation. Visual acuity normal. Pupils equal round reactive to light and accommodation. Eye movements normal. No nystagmus. Facial sensation intact. There is normal facial symmetry and strength. There is diminished hearing to finger rub on the left. Hearing on the right intact. Palate elevates to midline. Shoulder shrug strength intact bilaterally. Tongue protrudes to midline. Sensation intact to light touch, temperature, vibration, and proprioception in all 4 limbs. Deep tendon reflexes intact and symmetrical. There is no dysdiadochokinesia or dysmetria with finger to nose or heel to hein bilaterally. Ophthalmoscopic examination reveals normal-appearing optic disks and posterior segments. No papilledema or hemorrhages. Carotid pulses normal bilaterally, no bruits to auscultation. Gait and station normal. Patient exhibits normal muscle strength and tone for all 4 limbs. No atrophy. No abnormal movements observed. Laboratory Results Past 24 Hours: 06/07/17 05:21 Red Blood Count 4.27, Mean Corpuscular Volume 91.3, Mean Corpuscular Hemoglobin 31.1, Mean Corpuscular Hemoglobin Concent 34.1, Mean Platelet Volume 10.8, Neutrophils (%) (Auto) 60.8, Lymphocytes (%) (Auto) 28.3, Monocytes (%) (Auto) 8.9, Eosinophils (%) (Auto) 1.4, Basophils (%) (Auto) 0.3, Neutrophils # (Auto) 4.80, Lymphocytes # (Auto) 2.23, Monocytes # (Auto) 0.70, Eosinophils # (Auto) 0.11, Basophils # (Auto) 0.02 06/07/17 05:21 Test 06/06/17 10:20 06/06/17 11:29 06/07/17 05:21 06/07/17 07:45 Prothrombin Time 10.5 SECONDS (9.0-12.0) Prothromb Time International Ratio 1.0 (0.9-1.1) Activated Partial Thromboplast Time 24.1 SECONDS (21.0-31.0) Partial Thromboplastin Ratio 0.9 Total Bilirubin 0.3 mg/dl (0.2-1) Direct Bilirubin < 0.1 mg/dl (0-0.2) Aspartate Amino Transf (AST/SGOT) 16 U/L (15-37) Alanine Aminotransferase (ALT/SGPT) 24 U/L (12-78) Alkaline Phosphatase 74 U/L (45-117) Troponin I 0.026 ng/ml (0-0.045) Total Protein 7.0 gm/dl (6.4-8.2) Albumin 3.6 gm/dl (3.4-5.0) Thyroid Stimulating Hormone (TSH) 2.410 uIu/ml (0.300-4.500) Urine Color YELLOW Urine Appearance CLEAR (CLEAR) Urine pH 6.5 (4.5-7.5) Urine Specific [place] 1.019 (1.000-1.030) Urine Protein NEG (NEG) Urine Glucose (UA) NEG (NEG) Urine Ketones NEG (NEG) Urine Occult Blood NEG (NEG) Urine Nitrite NEG (NEG) Urine Bilirubin NEG (NEG) Urine Urobilinogen NEG (NEG) Urine Leukocyte Esterase NEG (NEG) White Blood Count 7.88 K/uL (4.8-10.8) Red Blood Count 4.27 M/uL (4.2-5.4) Hemoglobin 13.3 g/dL (12.0-16.0) Hematocrit 39.0 % (37-47) Mean Corpuscular Volume 91.3 fL (80-100) Mean Corpuscular Hemoglobin 31.1 pg (25-34) Mean Corpuscular Hemoglobin Concent 34.1 g/dl (32-36) Platelet Count 217 K/uL (130-400) Mean Platelet Volume 10.8 fL (7.4-10.4) Neutrophils (%) (Auto) 60.8 % Lymphocytes (%) (Auto) 28.3 % Monocytes (%) (Auto) 8.9 % Eosinophils (%) (Auto) 1.4 % Basophils (%) (Auto) 0.3 % Neutrophils # (Auto) 4.80 K/uL (1.4-6.5) Lymphocytes # (Auto) 2.23 K/uL (1.2-3.4) Monocytes # (Auto) 0.70 K/uL (0.11-0.59) Eosinophils # (Auto) 0.11 K/uL (0-0.5) Basophils # (Auto) 0.02 K/uL (0-0.2) RDW Standard Deviation 41.8 fL (36.4-46.3) RDW Coefficient of Variation 12.6 % (11.5-14.5) Immature Granulocyte % (Auto) 0.3 % Immature Granulocyte # (Auto) 0.02 K/uL (0.00-0.02) Anion Gap 6.0 mmol/L (3-11) Est Creatinine Clear Calc Drug Dose 66.1 ml/min Estimated GFR () 88.3 Estimated GFR (Non- 76.2 BUN/Creatinine Ratio 21.4 (10-20) Estimated Average Glucose 123 mg/dl Hemoglobin A1c 5.9 % (4.5-5.6) Calcium Level 8.8 mg/dl (8.5-10.1) Magnesium Level 2.1 mg/dl (1.8-2.4) Bedside Glucose 86 mg/dl (70-90) Impression Vasovagal syncope. History of spinal headaches and hearing loss to the left with discovery of a spontaneous CSF leak this past fall status post surgical correction. This issue is stable and not related to her vasovagal syncope. Plan Encourage adequate hydration. Liberalize salt intake. Take care upon standing. No further neurological recommendations.
--- NOTE | 2017-06-07 09:50 | Cardiology Consultation ---
Cardiology Consultation Date of Consultation: Jun 07, 2017. Requesting Physician: Saad Reason for Consultation: Syncope Pt evaluation today including: conversation w/ patient, physical exam, chart review, lab review, review of studies, review of inpatient medication list History of Present Illness The patient is a 62-year-old woman with a history of syncope who was at [employer] yesterday when she lost consciousness. Patient states that she was feeling well in the morning and after taking communion was kneeling in a pew. She became notably nauseated dizzy and broke into a cold sweat. She then lost consciousness for a brief period of time reported by bystanders to be a few minutes. Afterwards she felt quite poorly being dizzy and weak for an extended period of time. She was brought to [facility] for an evaluation and placed on the telemetry floor. Her symptoms resolved in this morning she is feeling well. She has not report any sense of palpitations leading up to this event. She is not having chest pain or shortness of breath. She had been up and down in the P use and in her residence all morning without symptoms of dizziness during changes in position. Patient had a syncopal episode in September of 2016. 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 She remembers losing consciousness without significant prodrome. This particular incident was different in character. In the interim the patient was diagnosed with a CSF leak. She had been having hearing loss in the left ear and underwent tympanostomy with resultant fluid drainage. She underwent surgery for her CSF leak and at that point noticed resolution of headaches and some dizziness. Her hearing loss did not improve. She claims to be an active individual who generally walks 2-3 miles per day. In the past she had some difficulty with dizziness but since her CSF leak was addressed she no longer has that limitation. She denies any exertional dyspnea or shortness of breath. She denies any sense of palpitation. She has no orthopnea or paroxysmal nocturnal dyspnea. She has not report swelling in her lower extremities. Past Medical/Surgical History Hyperlipidemia Hypertension CSF otorrhea Past surgical history Cholecystectomy Hysterectomy Repair CSF leak Family History No significant family history No premature coronary disease Social History Smoking Status: Never Smoker History of Alcohol Use: No Currently lives with her . 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 A small upper respiratory infection around the time of [place]. All Other Systems: Reviewed and Negative Allergies Coded Allergies: Shellfish (Verified Allergy, Unknown, `, 06/06/17) Penicillins (Verified Adverse Reaction, Mild, GI DISTRESS, 06/06/17) Medications Current Inpatient Medications Medications (Trade) Dose Ordered Sig/Jonah Route Start Time Stop Time Status Last Admin Dose Admin Heparin Sodium (Porcine) (Heparin Sq 5000 Unit/0.5ml) 5,000 unit Q12 SQ 06/06/17 21:00 07/06/17 20:59 Sodium Chloride 1,000 ml @ 75 mls/hr [id number] IV 06/06/17 14:12 07/06/17 14:11 06/07/17 06:48 75 MLS/HR Acetaminophen (Tylenol Tab) 650 mg Q4H PRN PO 06/06/17 14:15 07/06/17 14:14 Polyethylene (Miralax Powder Packet) 17 gm DAILY PRN PO 06/06/17 14:15 07/06/17 14:14 Atorvastatin Calcium (Lipitor Tab) 40 mg DAILY PO 06/07/17 09:00 07/07/17 08:59 06/07/17 07:58 40 MG Bupropion HCl (Wellbutrin-Sr Tab) 150 mg BID PO 06/06/17 21:00 07/06/17 20:59 06/07/17 07:57 150 MG Fluticasone Propionate (Flonase Nasal [place]) 2 sprays DAILY PRN TRIXIE 06/06/17 14:30 07/06/17 14:29 Lisinopril (Zestril Tab) 5 mg DAILY PO 06/07/17 09:00 07/07/17 08:59 Miscellaneous (Iv Fluids Completed) 1 ea PRN PRN N/A 06/06/17 15:00 06/06/18 14:59 Insulin Human Regular (novoLIN-R) SLIDING SCALE IF C... ACHS SC 06/06/17 16:30 07/06/17 16:29 Glucose (Glucose 40% Gel) 15-30 GRAMS 15 GRAMS... UD PRN PO 06/06/17 15:15 07/06/17 15:14 Glucose (Glucose Chew Tab) 4-8 Tablets 4 Tabl... UD PRN PO 06/06/17 15:15 07/06/17 15:14 Dextrose (Dextrose 50% 50ML Syringe) 25-50ML OF 50% DW IV FOR... UD PRN IV 06/06/17 15:15 07/06/17 15:14 Glucagon (Glucagon Inj) 1 mg UD PRN SQ 06/06/17 15:15 07/06/17 15:14 Physical Exam Vital Signs Past 12 Hours Date Time Temp Pulse Resp B/P (MAP) Pulse Ox O2 Delivery O2 Flow Rate FiO2 06/07/17 08:00 97 Room Air 06/07/17 07:22 36.8 66 18 118/78 (91) 97 Room Air 06/07/17 06:16 133/83 (100) 139/89 (106) 130/78 (95) 06/07/17 04:00 Room Air 06/07/17 04:00 36.8 67 18 128/80 (96) 97 Room Air 06/07/17 00:00 Room Air 06/06/17 23:30 36.6 66 18 127/80 (96) 99 Room Air She is alert and oriented x3. Mood affect appear normal. She answered all questions appropriately. HEENT: Sclerae are anicteric. Pupils are equal and reactive to light and accommodation. Extraocular movements were intact. Neuro: Cranial nerves intact Neck: Examination of the submandibular region did not reveal any significant lymphadenopathy. Carotids are palpable bilaterally and free of bruits on auscultation. There was no evidence of jugular venous distention. The thyroid was not enlarged. Lungs: Lungs are clear to auscultation bilaterally. There are no rales wheezes or rhonchi. She has normal respiratory effort without use of accessory muscles. There is normal pulmonary excursion. Cardiac: The rhythm was regular. S1 and S2 were normal. There are no murmurs on examination. The PMI was not markedly displaced on palpation. Abdomen: The abdomen was soft and nontender. Extremities: Patient has bilateral radial pulses that are equal in intensity. There is no evidence cyanosis or clubbing. There was no evidence of significant peripheral edema bilaterally. Skin: There are no rashes noted on examination today. Data Laboratory Results: Last 24 Hours Test 06/06/17 10:20 06/06/17 11:29 06/06/17 16:39 06/06/17 20:10 White Blood Count 8.81 K/uL Red Blood Count 4.47 M/uL Hemoglobin 14.0 g/dL Hematocrit 40.9 % Mean Corpuscular Volume 91.5 fL Mean Corpuscular Hemoglobin 31.3 pg Mean Corpuscular Hemoglobin Concent 34.2 g/dl Platelet Count 233 K/uL Mean Platelet Volume 10.7 fL Neutrophils (%) (Auto) 74.1 % Lymphocytes (%) (Auto) 18.2 % Monocytes (%) (Auto) 5.8 % Eosinophils (%) (Auto) 1.5 % Basophils (%) (Auto) 0.2 % Neutrophils # (Auto) 6.53 K/uL Lymphocytes # (Auto) 1.60 K/uL Monocytes # (Auto) 0.51 K/uL Eosinophils # (Auto) 0.13 K/uL Basophils # (Auto) 0.02 K/uL RDW Standard Deviation 41.5 fL RDW Coefficient of Variation 12.3 % Immature Granulocyte % (Auto) 0.2 % Immature Granulocyte # (Auto) 0.02 K/uL Prothrombin Time 10.5 SECONDS Prothromb Time International Ratio 1.0 Activated Partial Thromboplast Time 24.1 SECONDS Partial Thromboplastin Ratio 0.9 Sodium Level 140 mmol/L Potassium Level 4.0 mmol/L Chloride Level 108 mmol/L Carbon Dioxide Level 27 mmol/L Anion Gap 5.0 mmol/L Blood Urea Nitrogen 20 mg/dl Creatinine 0.96 mg/dl Estimated GFR () 72.9 Estimated GFR (Non- 62.9 BUN/Creatinine Ratio 21.0 Random Glucose 116 mg/dl Calcium Level 9.1 mg/dl Magnesium Level 2.2 mg/dl Total Bilirubin 0.3 mg/dl Direct Bilirubin < 0.1 mg/dl Aspartate Amino Transf (AST/SGOT) 16 U/L Alanine Aminotransferase (ALT/SGPT) 24 U/L Alkaline Phosphatase 74 U/L Troponin I 0.026 ng/ml Total Protein 7.0 gm/dl Albumin 3.6 gm/dl Thyroid Stimulating Hormone (TSH) 2.410 uIu/ml Urine Color YELLOW Urine Appearance CLEAR Urine pH 6.5 Urine Specific [place] 1.019 Urine Protein NEG Urine Glucose (UA) NEG Urine Ketones NEG Urine Occult Blood NEG Urine Nitrite NEG Urine Bilirubin NEG Urine Urobilinogen NEG Urine Leukocyte Esterase NEG Bedside Glucose 94 mg/dl 91 mg/dl Test 06/07/17 05:21 1/8/18 07:45 White Blood Count 7.88 K/uL Red Blood Count 4.27 M/uL Hemoglobin 13.3 g/dL Hematocrit 39.0 % Mean Corpuscular Volume 91.3 fL Mean Corpuscular Hemoglobin 31.1 pg Mean Corpuscular Hemoglobin Concent 34.1 g/dl Platelet Count 217 K/uL Mean Platelet Volume 10.8 fL Neutrophils (%) (Auto) 60.8 % Lymphocytes (%) (Auto) 28.3 % Monocytes (%) (Auto) 8.9 % Eosinophils (%) (Auto) 1.4 % Basophils (%) (Auto) 0.3 % Neutrophils # (Auto) 4.80 K/uL Lymphocytes # (Auto) 2.23 K/uL Monocytes # (Auto) 0.70 K/uL Eosinophils # (Auto) 0.11 K/uL Basophils # (Auto) 0.02 K/uL RDW Standard Deviation 41.8 fL RDW Coefficient of Variation 12.6 % Immature Granulocyte % (Auto) 0.3 % Immature Granulocyte # (Auto) 0.02 K/uL Sodium Level 142 mmol/L Potassium Level 4.3 mmol/L Chloride Level 109 mmol/L Carbon Dioxide Level 27 mmol/L Anion Gap 6.0 mmol/L Blood Urea Nitrogen 18 mg/dl Creatinine 0.82 mg/dl Est Creatinine Clear Calc Drug Dose 66.1 ml/min Estimated GFR () 88.3 Estimated GFR (Non- 76.2 BUN/Creatinine Ratio 21.4 Random Glucose 89 mg/dl Estimated Average Glucose 123 mg/dl Hemoglobin A1c 5.9 % Calcium Level 8.8 mg/dl Magnesium Level 2.1 mg/dl Bedside Glucose 86 mg/dl Imaging: Chest x-ray and head CT were performed. No acute findings EKG: Normal sinus rhythm. Normal EKG Telemetry reviewed: Rare PVC. No other arrhythmias. Normal heart rates. Echocardiogram performed in September of 2016. Normal LV systolic function. No significant valvular heart disease. Assessment & Plan 1. Syncope: The patient's description of her symptoms leading up to an after her event are very consistent with neurocardiogenic syncope. She has a normal echocardiogram and EKG. She otherwise appears to be healthy individual. She has a normal cardiac exam. I think this is situational syncope. I do not think there was any other precipitating factor. While she did not eat breakfast that morning this is not unusual for her. I described the counter- pressure maneuver and the need to recognize her symptoms and lie down if possible. She may have recurrent events but hopefully they can be aborted with these maneuvers. I do not think any other evaluation is required currently.
--- NOTE | 2017-06-07 12:56 | Discharge Instructions ---
Discharge Instructions Date of Service Jun 07, 2017. Admission Reason for Admission: Syncope Discharge Discharge Diagnosis / Problem: Neurocardiogenic syncope Discharge Goals Goal(s): Improve disease control, Diagnostic testing, Therapeutic intervention Activity Recommendations Activity Limitations: resume your previous activity Lifting Limitations: none Exercise/Sports Limitations: gradually increase as tolerated Shower/Bathe: no limitations Driving or Machine Use: no limitations (but if you start feeling lightheaded or nauseated, please harness puller immediately) . Instructions / Follow-Up Instructions / Follow-Up You were admitted after passing out (syncope). It is recommended that you use counter-pressure maneuvers such as squeezing your legs together, squeezing your fists, etc. to keep good blood flow return to your heart. Please make sure you are staying well-hydrated with fluids. Follow up with your PCP within 1-2 weeks as scheduled for you. Current Hospital Diet Patient's current hospital diet: Diabetes Type 2 Diet Discharge Diet Recommended Diet: Diabetes Type 2 Diet Procedures Procedures Performed: CT Head Chest xray Pending Studies Studies pending at discharge: no Laboratory Results Hemoglobin A1c Test 06/07/17 05:21 Range/Units Estimated Average Glucose 123 mg/dl Hemoglobin A1c 5.9 H 4.5-5.6 % Medical Emergencies . Who to Call and When: Medical Emergencies: If at any time you feel your situation is an emergency, please call 911 immediately. . Non-Emergent Contact Non-Emergency issues call your: Primary Care Provider you have recurrent syncope, or for any other acute concerns. . . "Provider Documentation" section prepared by Liza Nash. . VTE Core Measure Inpt VTE Proph given/why not?: Unfractionated heparin SQ, SCD's
--- NOTE | 2017-06-07 13:08 | Discharge Summary ---
Discharge Summary Date of Service Jun 07, 2017. Discharge Summary Admission Date: Jun 06, 2017 at 14:22 Discharge Date: Jun 07, 2017 Discharge Disposition: Home Principal Diagnosis: Syncope Problems/Secondary Diagnoses: hypertension hyperlipidemia depression chronic diastolic CHF GERD allergic rhinitis prediabetes h/o left sided craniectomy for CSF leak repair headache Immunizations: Have You Had Influenza Vaccine: N/A History of Tetanus Vaccine?: Yes Tetanus Immunization Date: Nov 15, 1999 History of Pneumococcal: Yes History of Hepatitis B Vaccine: Unknown Procedures: CT Head CXR Consultations: Neurology Cardiology Medication Reconciliation Continued Medications: Atorvastatin (Lipitor) 40 Mg Tab 40 MG PO DAILY, TAB Bupropion (Wellbutrin Sr) 150 Mg Ertab 150 MG PO BID, TAB Fluticasone Propionate (Nasal) (Flonase Allergy Relief) 50 Mcg/Act Spr 2 SPRAYS TRIXIE DAILY PRN for Nasal Congestion Lisinopril (Prinivil) 5 Mg Tab 5 MG PO DAILY, TAB Discharge Exam Feeling much improved. No headache-resolved last night. No lightheadedness. No events on telemetry except a few PVCs. No CP or SOB.Orthostatic vitals remain normal. Review of Systems Constitutional: No fever, No chills Eyes: No problem reported ENT: No problem reported Respiratory: No problem reported Cardiovascular: No problem reported Abdomen: + nausea, + constipation (chronic), No diarrhea, No GI bleeding Musculoskeletal: No problem reported Genitourinary - Female: No problem reported Neurologic: No problem reported Psychiatric: No problem reported Endocrine: No problem reported Hematologic / Lymphatic: No problem reported Integumentary: No problem reported Allergic / Immunologic: No problem reported PHYSICAL EXAM Vitals reviewed General Appearance: WD/WN, no apparent distress Head: normocephalic, atraumatic Eyes: normal inspection, PERRL, EOMI ENT: normal ENT inspection, TMs normal (no drainage or fluid seen in the EACs or behind TMs), pharynx normal Neck: supple, no adenopathy, thyroid normal, no JVD, trachea midline Respiratory/Chest: lungs clear, normal breath sounds, no respiratory distress, no accessory muscle use Cardiovascular: regular rate, rhythm, no edema, no gallop, no JVD, no murmur, normal peripheral pulses Abdomen/GI: normal bowel sounds, non tender, soft, no organomegaly, no pulsatile mass Back: normal inspection Extremities/Musculoskelatal: normal inspection, no calf tenderness, normal capillary refill, no pedal edema, normal range of motion Neurologic/Psych: 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 She reports feeling nauseated when she walked down the aisle to receive communion, and then when she returned to the pew and went on her knees to kneel, she passed out and slumped over the few in front of her for a few minutes as per witness report. When she woke up, she had a mild headache, 2-3 out of 10 in severity, but no other symptoms. Her orthostatic vital signs were negative in the ER. Her laboratory values and vital signs were otherwise normal. Her ECG was unremarkable. Her CT of the head showed postsurgical changes and atrophy versus CSF hypotension. Syncope/headache-no events on tele. Seen by Cardiology and Neurology in consultation. Likely neurocardiogenic, vasovagal in nature. I discussed the case with neurology on the phone given her recent CSF leak and findings on CT scan. Neurology thought it was low probability that a CSF leak would cause syncope. CT head findings are probably more likely related to age-related atrophy, however could take a while for her CSF level to return to normal. She should f/u with her Neurosurgeon and ENT at [facility]. Her orthostatics are negative. Vital signs and ECG otherwise normal. She had a normal echocardiogram 7-8 months ago, so this was not repeated. Advised counter-pressure maneuvers if has prodromal symptoms again. Encouraged hydration and to liberalize salt in her diet. 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 Hypertension/hyperlipidemia/chronic diastolic CHF-no acute issues at this time -Continue statin, lisinopril GERD-no issues at this time, in fact she stopped taking her PPI at home since she retired Allergic rhinitis-no issues at this time -Continue Flonase nasal spray as needed Prediabetes-hemoglobin A1c here was 5.9% -Sliding-scale insulin, Accu-Cheks here and no hyperglycemia -Not on any home medications Depression-stable -Continue Wellbutrin Discharged to home in good condition Total Time Spent: Greater than 30 minutes This includes examination of the patient, discharge planning, medication reconciliation, and communication with other providers. Discharge Instructions Please refer to the electronic Patient Visit Report (Discharge Instructions) for additional information. Follow-Up with PCP within 1-2 weeks Additional Copies To Isabel Kate MD
== END 2017-06-07 15:05 | disposition home or self-care (01) ==
LOC: C.EDB 10:00 → C.MED 14:22 → ENRESERV 14:38
PROVIDERS: ADMIT Family Medicine; ATTEND Family Medicine
DX: R55 Syncope and collapse (principal); E78.5 Hyperlipidemia, unspecified; F32.9 Major depressive disorder, single episode, unspecified; I50.32 Chronic diastolic (congestive) heart failure; I11.0 Hypertensive heart disease with heart failure; K21.9 Gastro-esophageal reflux disease without esophagitis; J30.9 Allergic rhinitis, unspecified; R73.03 Prediabetes; Z98.890 Other specified postprocedural states; R51 Headache; Z79.899 Other long term (current) drug therapy; H91.92 Unspecified hearing loss, left ear; Z83.3 Family history of diabetes mellitus; Z80.3 Family history of malignant neoplasm of breast; Z88.0 Allergy status to penicillin; Z91.013 Allergy to seafood; Z79.4 Long term (current) use of insulin

== ENCOUNTER → 2017-09-16 | Outpatient (CLI) | payer OTHER ==
[~2017-09-16] MED LIST changes: -DEXL30CA5 PO; +LISI-729 PO; -LISI10TA PO; -NPR250 PO
--- NOTE | 2017-09-16 14:54 | MAMMOGRAPHY REPORT ---
BILATERAL DIGITAL SCREENING MAMMOGRAM TOMOSYNTHESIS WITH CAD: 09/16/2017 CLINICAL HISTORY: Routine screening. Patient has no complaints. TECHNIQUE: Breast tomosynthesis in addition to standard 2D mammography was performed. Current study was also evaluated with a Computer Aided Detection (CAD) system. COMPARISON: Comparison is made to exams dated: 08/10/2016 mammogram, 08/08/2015 mammogram, 07/25/2014 m ammogram, 07/24/2013 mammogram, 07/21/2012 mammogram, and 07/15/2011 mammogram - [facility] enter. BREAST COMPOSITION: The tissue of both breasts is almost entirely fatty. FINDINGS: No suspicious masses, calcifications, or areas of architectural distortion are noted in ei ther breast. There has been no significant interval change compared to prior exams. Scattered bilater al benign-appearing calcifications are not significantly changed. IMPRESSION: ACR BI-RADS CATEGORY 2: BENIGN There is no mammographic evidence of malignancy. A 1 year screening mammogram is recommended. The pa tient will receive written notification of the results. Approximately 10% of breast cancers are not detected with mammography. A negative mammographic report should not delay biopsy if a clinically suggestive mass is present. Aminta Reza M.D. /:09/16/2017 13:41:36 Development Representative: Erendira HANKINSR, M, [facility] letter sent: Normal 1/2 BI-RADS Code: ACR BI-RADS Category 2: Benign
== END | disposition home or self-care (01) ==
LOC: C.MAMM 10:02
PROVIDERS: ATTEND Family Medicine
DX: Z12.31 Encounter for screening mammogram for malignant neoplasm of breast (principal)